=== PATIENT | female | born 1965 | race Hispanic/Latino ===

== ENCOUNTER 2017-04-08 11:52 | Inpatient (IN) | payer SELFPAY ==
[2017-04-08 12:39] LABS: #Basophils 0.1 thou/uL (0.0-0.2); #Eosinphils 0.1 thou/uL (0.0-0.7); #Lymphocytes 1.9 thou/uL (1.20-3.40); #Monocytes 0.3 thou/uL (0.11-0.59); #Neutrophils 3.2 thou/uL (1.40-6.50); %Basophils 1.6 % (0.0-1.0); %Eosinophils 1.7 % (0.0-10.0); %Lymphocytes 34.4 % (21.0-51.0); %Monocytes 4.9 % (0.0-10.0); %Neutrophils 57.4 % (42.0-75.0); Hemoglobin 13.6 g/dL (12.0-16.0); Mean Corpuscular HGB CONC 33.7 g/dL (32.0-36.0); Mean Corpuscular Hemoglobin 29.6 pg (27.0-31.0); Mean Corpuscular Volume 87.9 fl (81.0-99.0); Mean Platelet Volume 11.4 fL (7.4-10.4); Platelet Count 185 thou/uL (130-400); RBC Distribution Width 12.8 % (11.5-14.5); Red Blood Cell (RBC) Count 4.59 mill/uL (4.20-5.40); White Blood Cell (WBC) Count 5.6 thou/uL (4.8-10.8)
[2017-04-08] MEDS ORDERED: Labetalol HCl 100 MG/20 ML VIAL ONE (12:39)
[2017-04-08] MEDS ORDERED: Nitroglycerin 2% Ointment 1 INCH/1 GM Packet ONE (12:39)
[2017-04-08 12:43] LABS: PTT 26.1 SEC (22.9-36.1); Prothrombin Time 12.8 SEC (12.0-14.7)
--- NOTE | 2017-04-08 12:43 | CT ---
CT BRAIN: Date: 04/08/17 PROVIDED CLINICAL HISTORY: Altered mental status. FINDINGS: The ventricular system appears normal in size and morphology. There is no evidence for intracranial h emorrhage or mass effect. The extracranial soft tissues and osseous structures demonstrate an unremar kable CT appearance. IMPRESSION: No evidence for intracranial hemorrhage or mass effect. Findings communicated to Dr. Hogan in the emergency department at 1207 hours on 04/08/17. CODE CR. POS: HONG
--- NOTE | 2017-04-08 12:52 | CT ---
CT ANGIOGRAM BRAIN WITH IV CONTRAST AND 3D MIP RECONSTRUCTIONS AND PERFUSION CT ANGIOGRAM NECK WITH I V CONTRAST AND 3D MIP RECONSTRUCTIONS: Date: 04/08/17 HISTORY: Altered mental status FINDINGS: There is a three vessel origin of the great vessels at the arch. The common carotid, subclavian, inno minate, vertebral, and internal carotid arteries demonstrate no significant stenosis. Mild atheroscle rotic plaque at the origin of the left internal carotid artery. There is no evidence for focal vessel stenosis, branch occlusion, or aneurysm involving the major int racerebral vessels. The perfusion images demonstrate no vascular distribution of elevated mean transit time. IMPRESSION: 1. No significant internal carotid artery stenosis or acute finding related to the great vessels of the neck. 2. Normal CT angiogram of the brain. 3. Normal CT perfusion. Findings communicated to Dr. Hogan in the emergency department at 1220 hours on 04/08/17. CODE CR. POS: HONG
[2017-04-08 12:57] LABS: ALT (SGPT) 15 U/L (8-55); AST (SGOT) 11 U/L (5-34); Acetaminophen Less than 6.0 mcg/mL (10.0-30.0); Albumin 3.6 g/dL (3.5-5.0); Alcohol Less than 10 mg/dL (Less than 10); Alkaline Phosphatase 86 U/L (40-150); Anion Gap 14 mmol/L (10-20); BUN (Urea Nitrogen) 11 mg/dL (7.0-18.7); Bilirubin, Total 0.3 mg/dL (0.2-1.2); CK (CPK) 25 U/L (29-168); Calc. Creatinine Clearance 0 mL/min (70-130); Calcium 8.9 mg/dL (7.8-10.44); Carbon Dioxide 22 mmol/L (22-29); Chloride 99 mmol/L (98-107); Estimated GFR-MDRD Greater than 90; Globulin 2.6 g/dL (2.4-3.5); Potassium 3.9 mmol/L (3.5-5.1); Protein, Total 6.2 g/dL (6.0-8.3); Salicylate Less than 8.0 mg/dL (15.0-30.0); Sodium 131 mmol/L (136-145)
[2017-04-08 12:58] LABS: Glucose 398 mg/dL (70-105)
[2017-04-08 13:00] LABS: CKMB 0.7 ng/mL (0-6.6); Troponin I 0.049 ng/mL (< 0.028)
[2017-04-08 13:52] LABS: Bilirubin Negative (Negative); Blood, Urine Trace (Negative); Clarity CLEAR (Clear); Glucose, Urine (Dipstick) >=1000 mg/dL (Negative); Leukocyte Negative (Negative); Nitrite Negative (Negative); Protein, Urine (Dipstick) 100 mg/dL (Neg-Trace); Urobilinogen 0.2 mg/dL (0.2-1.0)
[2017-04-08 13:55] LABS: Bacteria/HPF 4+ HPF (None Seen); Hyaline Casts/LPF 0-3 HYALINE CAST LPF (0-3 Hyaline); RBC/HPF 0-3 HPF (0-3); Squamous Epithelial 0-3 HPF (0-3)
[2017-04-08 14:01] LABS: Amphetamine Not Detected (NotDetected); Barbiturates Screen Not Detected (NotDetected); Benzodiazepine Screen Not Detected (NotDetected); Cocaine Metabolite Screen Not Detected (NotDetected); Medtox Control Line Valid? VALID (VALID); Medtox Reader # READER 4; Methadone Not Detected (NotDetected); Methamphetamine Not Detected (NotDetected); Opiate Screen Not Detected (NotDetected); Oxycodone Screen Not Detected (NotDetected); Phencyclidine (PCP) Not Detected (NotDetected); THC/Cannabinoid Screen Not Detected (NotDetected); Tricyclic Screen Not Detected (NotDetected)
[2017-04-08] MEDS ORDERED: ISOVUE-370 76%-LOCM 1 ML ONE (14:15)
[2017-04-08 16:41] VITALS: BMI 30.8
[2017-04-08] MEDS ORDERED: Ondansetron ODT 4 MG TAB SL PRN (16:43)
[2017-04-08] MEDS ORDERED: Ondansetron HCl/PF 4 MG/2 ML Vial IVP PRN (16:43)
[2017-04-08] MEDS ORDERED: Acetaminophen 325 MG TAB PO PRN (16:43)
[2017-04-08] MEDS ORDERED: FLU VACC QS2017-18 36 mo. & older 0.5 ML SYRINGE IM ONE (17:30)
[2017-04-08] MEDS ORDERED: Dextrose 5% in Water 1,000 ML IV PRN (18:55)
[2017-04-08] MEDS ORDERED: Dextrose 50% Abboject 50 ML SYRINGE SLOW IVP PRN (18:55)
[2017-04-08] MEDS ORDERED: HumaLOG 300 UNITS/3 ML VIAL SC PRN (18:55)
[2017-04-08] MEDS: Famotidine 20 MG TAB PO SCH (21:11)
[2017-04-08] MEDS: Sodium Chloride 0.9% 1,000 ML IV SCH (21:13)
[2017-04-08 22:19] LABS: Troponin I 0.054 ng/mL (< 0.028)
--- NOTE | 2017-04-08 22:46 | HP ---
DATE OF ADMISSION: 04/08/2017 PRIMARY CARE PHYSICIAN: Margarita in [place], [place]. CHIEF COMPLAINT: Question of altered mental status and weakness. HISTORY OF PRESENT ILLNESS: This is a 51-year-old female, Japanese speaking only, who presen janessa to [facility] Emergency Department after the patient's daughter found the patient lying on a couch, crying. The patient's daughter provides the history and translation and st ates that she had gone to the grocery store and returned to find her mother, lying on the couch somew hat confused and crying. No specific evidence of fall, injury, seizure activity, urinary, or bowel i ncontinence. The patient's daughter became concerned after finding her mother and called EMS ambrose galvan. Patient was evaluated by EMS, at which point the initial blood pressure was noted 225/110 with s ome tachycardia in the low 100s. Patient apparently was initially altered with orientation x0 with i nitial [place] coma scale of 11. Patient states she was sitting on the couch, but does not remember and passing out or blacking out. Patient denied any specific chest pain, but has felt weakness. Marie king admits to longstanding history of diabetes approximately 16 years, poorly controlled. Patient d oes not check her own glucose at home and apparently does not have a glucometer. Patient also is leg ally blind due to advanced diabetes over the last 8 months. Patient denies any specific change to he r chronic medications, which include an antihypertensive medication as well as metformin. Patient de nies any illicit ingestion, alcohol use, and states she normally has difficulty ambulating due to the blindness. Patient underwent general evaluation including CT of the brain as well as CT angiogram o f the head and neck showing negative findings. Patient received IV labetalol and transdermal nitrogl ycerin and was referred to the stroke unit for further evaluation. PAST MEDICAL HISTORY: 1. Diabetes mellitus, type 2 x16 years, poorly controlled. 2. Diabetic retinopathy with legal blindness. 3. Question of peripheral neuropathy. 4. Hypertension. PAST SURGICAL HISTORY: Reviewed and negative. CURRENT MEDICATIONS: Unknown, however, patient does admit to metformin dose unknown. ALLERGIES: No known drug allergies. FAMILY HISTORY: Positive for diabetes and hypertension. SOCIAL HISTORY: Patient lives with her daughter in the [place], [place] area. Unemployed. No current a lcohol, tobacco, or illicit drug use. REVIEW OF SYSTEMS: The following complete review of systems was otherwise negative, except as stated per HPI: Constitutional: Weight loss or gain, ability to conduct usual activities. Skin: Rash, i tching. Eyes: Double vision, pain. ENT/Mouth: Nose bleeding, neck stiffness, pain, tenderness. C ardiovascular: Palpitations, dyspnea on exertion, orthopnea. Respiratory: Shortness of breath, whe ezing, cough, hemoptysis, fever, or night sweats. Gastrointestinal: Poor appetite, abdominal pain, heartburn, nausea, vomiting, constipation, or diarrhea. Genitourinary: Urgency, frequency, dysuria, nocturia. Musculoskeletal: Pain, swelling. Neurologic/Psychiatric: Anxiety, depression. Allergy /Immunologic: Skin rash, bleeding tendency. PHYSICAL EXAMINATION: VITAL SIGNS: On admission blood pressure 219/102, pulse 88, respiratory rate 22, temperature 98.4 de grees Fahrenheit, O2 saturation 100% on room air. GENERAL APPEARANCE: This is a 51-year-old female, alert, responsive in no acute distress. HEENT: Pupils are equal, round, and reactive to light and accommodation. Patient will not track. E xtraocular muscles are intact. Nares patent. OP is clear. Scalp atraumatic. NECK: Supple, no cervical adenopathy, no thyromegaly, no carotid bruits, no JVD appreciated. Cervic al spine with full active and passive range of motion. No meningeal signs appreciated. CHEST: Lungs are clear to auscultation bilaterally. CARDIOVASCULAR: S1, S2 without noted murmur. ABDOMEN: Obese, soft, nontender, nondistended. Bowel sounds are positive in all four quadrants. Th ere is no hepatosplenomegaly, no abdominal bruits, no rebound or guarding appreciated. EXTREMITIES: Warm and dry with fair turgor. No clubbing, cyanosis, or asymmetric edema appreciated. Pulses are palpable distally at the dorsalis pedis, posterior tibial, and popliteal arteries bilate rally. Capillary refill less than 2 seconds. NEUROLOGIC: Legally blind. The rest of the cranial nerves II-XII are grossly intact. PERTINENT LABORATORY AND X-RAY FINDINGS: Sodium 131, potassium 3.9, chloride 99, CO2 of 22, BUN 11, creatinine 0.64, estimated GFR greater than 90, glucose 398, calcium 8.9. LFTs within normal limits. Total CK 25, troponin I at 0.049, albumin 3.6. CBC showed a white blood cell count of 5.6, hemoglo bin 14, hematocrit 40, platelet count of 185 with normal differential. PT 12.8, INR 1.0, PTT 26.1. Urinalysis shows specific gravity of 1.060, pH of 7, positive protein, greater than 1000 glucose, pos itive ketones with 4-6 wbc's per high powered field. Urine drug screen dated 04/08/2017, negative. Plasma alcohol level less than 10. CT of the brain without contrast dated 04/08/2017, showed no acut e intracranial process. CT angiogram of the head and neck dated 04/08/2017, showed no significant fo antonieta stenosis. EKG dated 04/08/2017, by my interpretation shows sinus mechanism with heart rates in t he 80s. Attenuated R waves noted in the precordial leads. Left axis deviation. No acute ST-T wave changes appreciated. ASSESSMENT AND PLAN: 1. Hypertensive urgency with encephalopathy. Patient will be admitted to the stroke unit. Clinical symptoms have resolved currently. We will continue serial blood pressure monitoring. We will provi de clonidine and hydralazine p.r.n. systolic greater than or equal to 170. Initial neuro imaging unr emarkable. 2. Diabetes mellitus, type 2, uncontrolled. We will check A1c level in the a.m. Provide insulin sl iding scale for reflexive coverage. ADA diet. Confirm home oral hypoglycemics. 3. Hyponatremia secondary to hyperglycemia. We will continue intravenous normal saline at 75 mL per hour. Suspect pseudohyponatremia due to hyperglycemia. Repeat sodium level in the a.m. 4. Elevated troponin I. Suspect demand ischemic state secondary to hypertensive urgency. Complete serial troponin I trending q.3 hours x2. No evidence to suggest acute coronary syndrome. 5. Hypertension. See #1 above. We will need to confirm home antihypertensive regimen. Likely louis ent will have additional titration of her blood pressure regimen on an ongoing basis after discharge. Check 2D transthoracic echocardiogram. 6. Prophylaxis. Sequential compression devices while in bed. Pepcid 20 mg p.o. b.i.d. Dietitian shirley salvador in the a.m. 7. Code status is FULL. Surrogate medical decision maker is the patient's daughter.
[2017-04-08] MEDS ORDERED: Docusate 100 MG CAP PO SCH (23:15)
[2017-04-09 01:01] LABS: Troponin I 0.061 ng/mL (< 0.028)
[2017-04-09 05:54] LABS: ALT (SGPT) 15 U/L (8-55); AST (SGOT) 11 U/L (5-34); Albumin 3.5 g/dL (3.5-5.0); Alkaline Phosphatase 75 U/L (40-150); Anion Gap 11 mmol/L (10-20); BUN (Urea Nitrogen) 14 mg/dL (7.0-18.7); Bilirubin, Total 0.3 mg/dL (0.2-1.2); Calc. Creatinine Clearance 137 mL/min (70-130); Calcium 8.8 mg/dL (7.8-10.44); Carbon Dioxide 27 mmol/L (22-29); Chloride 102 mmol/L (98-107); Estimated GFR-MDRD Greater than 90; Globulin 2.5 g/dL (2.4-3.5); Glucose 341 mg/dL (70-105); Potassium 3.9 mmol/L (3.5-5.1); Sodium 136 mmol/L (136-145)
[2017-04-09] MEDS: HumaLOG 300 UNITS/3 ML VIAL SC PRN ×3 (06:13→17:36)
[2017-04-09 06:17] LABS: Hemoglobin A1c 14.1 % (4.0-6.0)
[2017-04-09 06:31] LABS: Band 1 % (5-11); Eosinophils 1 % (0-10); Hemoglobin 12.5 g/dL (12.0-16.0); Lymphocytes 38 % (21-51); MDiff Complete? YES; Mean Corpuscular HGB CONC 33.9 g/dL (32.0-36.0); Mean Corpuscular Hemoglobin 30.2 pg (27.0-31.0); Mean Corpuscular Volume 89.1 fl (81.0-99.0); Mean Platelet Volume 11.8 fL (7.4-10.4); Monocytes 5 % (0-10); Neutrophil 55 % (42-75); PLT Morphology Comment Appears Adequate; Platelet Count 179 thou/uL (130-400); RBC Distribution Width 12.8 % (11.5-14.5); RBC Morphology Normal; Red Blood Cell (RBC) Count 4.13 mill/uL (4.20-5.40); White Blood Cell (WBC) Count 5.4 thou/uL (4.8-10.8)
[2017-04-09] MEDS: Senokot 8.6 MG TAB PO SCH (09:53)
[2017-04-09] MEDS: Famotidine 20 MG TAB PO SCH ×2 (09:53→20:55)
[2017-04-09] MEDS: Docusate 100 MG CAP PO SCH ×2 (09:53→20:55)
[2017-04-09] MEDS: Sodium Chloride 0.9% 1,000 ML IV SCH ×2 (09:59→22:07)
--- NOTE | 2017-04-09 13:24 | PDOC.PN ---
- Subjective Encounter Start Date: 04/09/17 Encounter Start Time: 13:25 Subjective: f/u for HTN encephalopathy and uncontrolled DM. A1C = 14.1. Feels ok over -: all but still weak. No N/V/D. No unilateral weakness. Some LE pain. - Objective Resuscitation Status: Resuscitation Status FULL:Full Resuscitation MAR Reviewed: Yes Vital Signs & Weight: Vital Signs (12 hours) Temp Pulse Pulse Pulse Resp BP BP 04/09/17 11:45 98.3 F 81 16 04/09/17 10:55 82 81 167/79 H 156/73 H 04/09/17 08:30 98.7 F 73 16 04/09/17 07:32 98.7 F 73 16 04/09/17 04:00 97.9 F 68 20 BP Pulse Ox 04/09/17 11:45 156/73 H 99 04/09/17 10:55 04/09/17 08:30 96 04/09/17 07:32 137/62 98 04/09/17 04:00 138/63 97 Weight Weight 179 lb 8 oz I&O: 04/08/17 04/09/17 04/10/17 06:59 06:59 06:59 Intake Total 1165 Balance 1165 Result Diagrams: 04/09/17 04:51 04/09/17 04:51 Additional Labs: Accuchecks 04/09/17 04/09/17 04/08/17 10:55 05:41 20:30 POC Glucose 346 H 290 H 384 H 04/08/17 17:45 POC Glucose 338 H Laboratory Tests 04/08/17 04/08/17 04/09/17 12:20 21:48 00:19 Hemoglobin A1c Troponin I 0.049 H 0.054 H 0.061 H TSH 3rd Generation 04/09/17 04/09/17 04:51 04:51 Hemoglobin A1c 14.1 H Troponin I TSH 3rd Generation 1.6725 Radiology Reviewed by me: Yes (2D echo - pending) EKG Reviewed by me: Yes (Tele - SR) Phys Exam - Physical Examination Constitutional: NAD HEENT: oral pharynx no lesions Neck: no JVD, supple Respiratory: no wheezing, clear to auscultation bilateral Cardiovascular: RRR Gastrointestinal: soft, non-tender, no distention, positive bowel sounds Musculoskeletal: no edema, pulses present Neurological: normal sensation, moves all 4 limbs Skin: normal turgor, cap refill <2 seconds Dx/Plan (1) Hypertensive encephalopathy Code(s): I67.4 - HYPERTENSIVE ENCEPHALOPATHY Status: Acute Comment: Improved , start Lisinopril 10mg daily, titrate BP regimen to clinical response (2) Diabetes mellitus type II, uncontrolled Code(s): E11.65 - TYPE 2 DIABETES MELLITUS WITH HYPERGLYCEMIA Status: Chronic Comment: Uncontrolled, start NPH 15u sc BID, ISS, accuchecks AC/HS (3) Hyponatremia Code(s): E87.1 - HYPO-OSMOLALITY AND HYPONATREMIA Status: Chronic Comment: Likely pseudohyponatremia, serial Na+, anticipate improvement with stabilizing glucose (4) Elevated troponin I level Code(s): R74.8 - ABNORMAL LEVELS OF OTHER SERUM ENZYMES Status: Acute Comment: Suspect demand ischemia in context of uncontrolled HTN, 2D echo pending (5) Diabetic retinopathy associated with type 2 diabetes mellitus Code(s): E11.319 - TYPE 2 DIABETES W UNSP DIABETIC RTNOP W/O MACULAR EDEMA Status: Chronic Qualifiers: Laterality: bilateral Comment: Advanced retinopathy, plan for outpt Ophthalmological referral - Plan plan discussed w/ family, PT/OT, social work msw, out of bed/ambulate, DVT proph w/SCDs Start NPH insulin 15u sc BID -: Start Lisinopril 10mg daily -: DM teaching -: Continue IVF's another 24h then d/c -: AM lab: BMP, Lipid profile * .
[2017-04-09] MEDS ORDERED: NPH, Human Insulin Isophane 300 UNIT/3 ML VIAL SC SCH (14:00)
[2017-04-09] MEDS ORDERED: Lisinopril 10 MG TAB PO SCH (14:00)
[2017-04-09] MEDS: Lisinopril 10 MG TAB PO SCH (15:00)
[2017-04-09] MEDS: NPH, Human Insulin Isophane 300 UNIT/3 ML VIAL SC SCH (20:55)
[2017-04-10] MEDS: HumaLOG 300 UNITS/3 ML VIAL SC PRN ×2 (05:22→11:58)
[2017-04-10 05:53] LABS: Anion Gap 9 mmol/L (10-20); BUN (Urea Nitrogen) 10 mg/dL (7.0-18.7); Calc. Creatinine Clearance 149 mL/min (70-130); Calcium 8.4 mg/dL (7.8-10.44); Carbon Dioxide 25 mmol/L (22-29); Cardiac Risk 7.2 (Less than 4.5); Chloride 107 mmol/L (98-107); Cholesterol 202 mg/dl (< 200 Desired); Estimated GFR-MDRD Greater than 90; Glucose 262 mg/dL (70-105); HDL Cholesterol 28 mg/dL (>60 Neg Risk); LDL Cholesterol, Calculated 124 mg/dL; Potassium 3.9 mmol/L (3.5-5.1); Sodium 137 mmol/L (136-145); Triglycerides 250 mg/dL (Less than 150)
[2017-04-10] MEDS: Senokot 8.6 MG TAB PO SCH (08:31)
[2017-04-10] MEDS: Docusate 100 MG CAP PO SCH (08:32)
[2017-04-10] MEDS: NPH, Human Insulin Isophane 300 UNIT/3 ML VIAL SC SCH (08:32)
[2017-04-10] MEDS: Famotidine 20 MG TAB PO SCH (08:32)
[2017-04-10] MEDS: Lisinopril 10 MG TAB PO SCH (14:31)
[2017-04-10 15:34] VITALS: BP 158/80; TEMP 98.2
--- NOTE | 2017-04-10 15:42 | DIS ---
DATE OF ADMISSION: 04/08/2017 DATE OF DISCHARGE: 04/10/2017 DISCHARGE DIAGNOSES: 1. Hypertensive encephalopathy, resolved. 2. Hypertension, improved. 3. Diabetes mellitus, type 2, uncontrolled. 4. Hyponatremia, secondary to hyperglycemia. 5. Elevated troponin I, secondary to demand ischemia. 6. Advanced diabetic retinopathy, secondary to uncontrolled diabetes mellitus type 2. 7. Hyperlipidemia. CONSULTATIONS: None. PERTINENT LABORATORY AND X-RAY FINDINGS: Basic metabolic profile within normal limits. Hemoglobin A 1c 14.1. Troponin I ranged between 0.049-0.061. TSH 1.48. Total cholesterol 202, triglycerides 250 , HDL 28, LDL 124. CT angiogram of the head and neck dated 04/10/2017 showed no significant internal carotid artery stenosis. Normal angiogram of the brain. CT of the brain without contrast dated showed no acute intracranial process. A 2D transthoracic echocardiogram dated 04/09/2017 charlotte wed ejection fraction of 60%-65%. Mild tricuspid valve regurgitation. HOSPITAL COURSE: Patient was initially admitted to the stroke unit after presenting with questionabl e altered mentation in the context of elevated blood pressure in the 220s/110 range. The patient was diagnosed with hypertensive encephalopathy, treated initially with clonidine and hydralazine. Kusum nt was monitored clinically with overall stabilization of mental status after control of blood pressu re. The patient also with significant history of diabetes mellitus, type 2, confirming uncontrolled status with hemoglobin A1c of 14.1. The patient was initiated on NPH insulin 15 units subcutaneously b.i.d., titrating to 20 units subcutaneously b.i.d., with overall glucose trend in the low 200 range . Patient will need additional titration of her insulin regimen on an ongoing basis after discharge. The patient received diabetic education and instruction from dietitian services and will need [facility] education and reinforcement after discharge. Overall, the patient did remain clinically stable th roughout the hospital course with telemetry monitoring showing a sinus mechanism without evidence of acute arrhythmia or dysrhythmia. Current recommendations are for aggressive glucose control and clos e followup with her primary care provider. The patient was also recommended to seek ophthalmologic c onsultation due to advanced diabetic retinopathy. Overall, the patient clinically stabilized and jarvis dy for discharge on 04/10/2017. DISCHARGE MEDICATIONS: 1. NPH (Humulin N) 20 units subcutaneously b.i.d. 2. Lisinopril 10 mg 1 tab p.o. daily. FOLLOWUP: The patient may follow up with [facility] in [place], [place], within 5-7 days of discharge. CONDITION ON DISCHARGE: Fair. ACTIVITY: Ad jarod. DIET: ADA and heart healthy. SPECIAL INSTRUCTIONS: Recommend ophthalmology followup for advanced diabetic retinopathy. CODE STATUS: FULL. DISPOSITION: Home, 04/10/2017.
--- NOTE | 2017-04-16 17:23 | EKG ---
Test Reason : STROKE Blood Pressure : / mmHG Vent. Rate : 088 BPM Atrial Rate : 088 BPM P-R Int : 140 ms QRS Dur : 092 ms QT Int : 408 ms P-R-T Axes : 032 -56 040 degrees QTc Int : 493 ms Normal sinus rhythm Left anterior fascicular block Abnormal ECG Confirmed by SHIRA LAURENT, MICHAEL Jung ([id number]), editor managing newspaper HELENE PALACIOS ([id number]) on 04/16/2017 5:22:54 PM Referred By: Confirmed By:MICHAEL SILVA MD
== END 2017-04-10 17:33 | disposition home or self-care (01) | DRG 78 ==
LOC: ERS 11:52 → EDBD 11:52 → 2SE 14:33
PROVIDERS: ADMIT Family Medicine; ATTEND Family Medicine
DX: I67.4 Hypertensive encephalopathy (principal); E87.1 Hypo-osmolality and hyponatremia; E11.319 Type 2 diabetes mellitus with unspecified diabetic retinopathy without macular edema; I24.8 Other forms of acute ischemic heart disease; I10 Essential (primary) hypertension; E11.65 Type 2 diabetes mellitus with hyperglycemia; E78.5 Hyperlipidemia, unspecified
CPT/HCPCS: 0042T; 36415; 36416; 70450; 70496; 70498; 80048; 80053; 80061; 80306; 80307; 81003; 81015; 82553; 83036; 84443; 84484; 85007; 85025; 85027; 85610; 85730; 86850; 86870; 86900; 86901; 86922; 90471; 90682; 93005; 93306; 94760; 96374; A4216; A4353; G0008; G8978-GP-CK; G8979-GP-CK; G8980-GP-CK; J1815; Q0162; Q2036

== ENCOUNTER 2017-05-01 19:49 | Observation (INO) | payer SELFPAY ==
[2017-05-01 20:19] LABS: #Basophils 0.1 thou/uL (0.0-0.2); #Eosinphils 0.2 thou/uL (0.0-0.7); #Lymphocytes 2.8 thou/uL (1.20-3.40); #Monocytes 0.4 thou/uL (0.11-0.59); #Neutrophils 5.1 thou/uL (1.40-6.50); %Basophils 1.2 % (0.0-1.0); %Lymphocytes 32.5 % (21.0-51.0); %Monocytes 4.9 % (0.0-10.0); %Neutrophils 59.3 % (42.0-75.0); Hemoglobin 14.3 g/dL (12.0-16.0); Mean Corpuscular HGB CONC 34.5 g/dL (32.0-36.0); Mean Corpuscular Hemoglobin 30.8 pg (27.0-31.0); Mean Corpuscular Volume 89.1 fl (81.0-99.0); Mean Platelet Volume 11.6 fL (7.4-10.4); Platelet Count 211 thou/uL (130-400); RBC Distribution Width 13.4 % (11.5-14.5); Red Blood Cell (RBC) Count 4.66 mill/uL (4.20-5.40); White Blood Cell (WBC) Count 8.6 thou/uL (4.8-10.8)
[2017-05-01 20:42] LABS: ALT (SGPT) 13 U/L (8-55); AST (SGOT) 15 U/L (5-34); Albumin 4.1 g/dL (3.5-5.0); Alkaline Phosphatase 119 U/L (40-150); Anion Gap 16 mmol/L (10-20); BUN (Urea Nitrogen) 17 mg/dL (7.0-18.7); Bilirubin, Total 0.2 mg/dL (0.2-1.2); Calc. Creatinine Clearance 0 mL/min (70-130); Calcium 9.7 mg/dL (7.8-10.44); Carbon Dioxide 21 mmol/L (22-29); Chloride 100 mmol/L (98-107); Estimated GFR-MDRD 70; Globulin 3.7 g/dL (2.4-3.5); Glucose 353 mg/dL (70-105); Potassium 4.2 mmol/L (3.5-5.1); Protein, Total 7.8 g/dL (6.0-8.3); Sodium 133 mmol/L (136-145)
[2017-05-01 20:45] LABS: CKMB 0.9 ng/mL (0-6.6); Troponin I 0.079 ng/mL (< 0.028)
--- NOTE | 2017-05-01 21:21 | RAD ---
FRONTAL VIEW CHEST: Indication: Dyspnea. FINDINGS: Lungs are clear. No effusion or pneumothorax. Cardiac silhouette is accentuated with portable techniq ue. Extrinsic artifacts limit detail. IMPRESSION: No focal consolidation. POS: HONG
[2017-05-01] MEDS ORDERED: Dextrose 5% in Water 1,000 ML IV PRN (23:41)
[2017-05-01] MEDS ORDERED: Acetaminophen 325 MG TAB PO PRN (23:41)
[2017-05-01] MEDS ORDERED: HYDROcodone/Acetaminophen 5/325 mg Tablet PO PRN (23:41)
[2017-05-01] MEDS ORDERED: HYDROcodone/Acetaminophen 7.5/325 mg Tablet PO PRN (23:41)
[2017-05-01] MEDS ORDERED: Dextrose 50% Abboject 50 ML SYRINGE SLOW IVP PRN (23:41)
[2017-05-01] MEDS ORDERED: Insulin Regular 300 UNITS/3 ML VIAL ONE (23:47)
[2017-05-02 00:30] LABS: Troponin I 0.084 ng/mL (< 0.028)
--- NOTE | 2017-05-02 00:38 | HP ---
CHIEF COMPLAINT: Shortness of breath. HISTORY OF PRESENT ILLNESS: The patient is a 51-year-old female, who presents with increasing shortn ess of breath since yesterday. The patient of note was in the hospital recently for her blood sugar and also for cardiac workup. Patient apparently was started on diuretics; however, did not fill the prescription, has not been compliant with her medications. The patient also complained of PND. She denied any chest pain. Please note her daughter was present and history was obtained through transla tion to her. PAST MEDICAL HISTORY: The patient significant for type 2 diabetes and hypertension. PAST SURGICAL HISTORY: x2. SOCIAL HISTORY: Negative tobacco or alcohol use. REVIEW OF SYSTEMS: See HPI. Rest of 14-point review of system is negative. FAMILY HISTORY: Reviewed and noncontributory. MEDICATIONS: The patient has only been taking metformin. LABORATORY DATA: Yesterday, CBC, white count was 8.6, H and H 14 and 41 with a platelet of 211. Sod ium is 133, potassium 4.2, chloride 100, bicarbonate 21, BUN 17, creatinine 0.8. Patient's chest x-r ay showed no consolidation. PHYSICAL EXAMINATION: VITAL SIGNS: Blood pressure 144/55, pulse 74, respirations 16, T-max was 92, patient satting 97% on room air. GENERAL: Patient is awake, alert, and oriented x3, in no acute distress. HEENT: Pupils are round, reactive accommodations. Extraocular muscles intact. TMs are clear. No e rythema in throat. NECK: No JVD, no lymphadenopathy. CARDIOVASCULAR: Regular rhythm. LUNGS: With some crackles at the bases. ABDOMEN: Positive bowel sounds, soft, nontender, nondistended. EXTREMITIES: No clubbing, cyanosis, or edema. ASSESSMENT AND PLAN: 1. Uncontrolled hypertension. Continue on Lasix. We will go ahead and add beta-anabell to her milli men. 2. Type 2 diabetes. Continue on sliding scale. 3. Code status: The patient is FULL CODE.
[2017-05-02 02:54] VITALS: BMI 35.4
[2017-05-02 03:11] LABS: #Basophils 0.1 thou/uL (0.0-0.2); #Eosinphils 0.1 thou/uL (0.0-0.7); #Lymphocytes 2.2 thou/uL (1.20-3.40); #Monocytes 0.4 thou/uL (0.11-0.59); #Neutrophils 3.9 thou/uL (1.40-6.50); %Eosinophils 2.1 % (0.0-10.0); %Lymphocytes 32.5 % (21.0-51.0); %Monocytes 5.9 % (0.0-10.0); %Neutrophils 58.6 % (42.0-75.0); Hemoglobin 11.8 g/dL (12.0-16.0); Mean Corpuscular HGB CONC 33.4 g/dL (32.0-36.0); Mean Corpuscular Volume 89.8 fl (81.0-99.0); Mean Platelet Volume 11.3 fL (7.4-10.4); Platelet Count 160 thou/uL (130-400); RBC Distribution Width 13.3 % (11.5-14.5); Red Blood Cell (RBC) Count 3.93 mill/uL (4.20-5.40); White Blood Cell (WBC) Count 6.7 thou/uL (4.8-10.8)
[2017-05-02 03:31] LABS: Anion Gap 9 mmol/L (10-20); BUN (Urea Nitrogen) 16 mg/dL (7.0-18.7); Calc. Creatinine Clearance 153 mL/min (70-130); Calcium 8.5 mg/dL (7.8-10.44); Carbon Dioxide 25 mmol/L (22-29); Chloride 106 mmol/L (98-107); Estimated GFR-MDRD Greater than 90; Glucose 281 mg/dL (70-105); Potassium 3.8 mmol/L (3.5-5.1); Sodium 136 mmol/L (136-145)
[2017-05-02 03:35] LABS: Troponin I 0.086 ng/mL (< 0.028)
[2017-05-02] MEDS: HumaLOG 300 UNITS/3 ML VIAL SC PRN ×3 (06:15→17:51)
[2017-05-02] MEDS: Enoxaparin Sodium 30 MG/0.3 ML SYRINGE SC SCH (09:14)
[2017-05-02] MEDS: Furosemide 40 MG TAB PO SCH (09:14)
--- NOTE | 2017-05-02 12:52 | PDOC.PN ---
- Subjective Encounter Start Date: 05/02/17 Encounter Start Time: 12:50 Subjective: sob improved - Objective Resuscitation Status: Resuscitation Status FULL:Full Resuscitation MAR Reviewed: Yes Vital Signs & Weight: Vital Signs (12 hours) Temp Pulse Resp BP BP Pulse Ox 05/02/17 11:12 97.5 F L 67 16 151/69 H 97 05/02/17 08:00 97.7 F 71 18 05/02/17 07:20 97.7 F 71 18 146/70 H 95 05/02/17 02:54 98.2 F 72 20 146/67 H 95 05/02/17 02:35 98.2 F 74 22 H 05/02/17 01:09 98.2 F 74 22 H 183/80 H 97 Weight Weight 187 lb 9.6 oz I&O: 05/01/17 05/02/17 05/03/17 06:59 06:59 06:59 Intake Total 110 Output Total 0 Balance 110 Result Diagrams: 05/02/17 03:01 05/02/17 03:01 Additional Labs: Accuchecks 05/02/17 05/02/17 05/02/17 10:50 06:14 02:59 POC Glucose 284 H 230 H 251 H Phys Exam - Physical Examination Constitutional: NAD Neck: no JVD Respiratory: clear to auscultation bilateral Cardiovascular: RRR, no significant murmur Gastrointestinal: soft, positive bowel sounds Musculoskeletal: no edema Dx/Plan (1) Dyspnea Code(s): R06.00 - DYSPNEA, UNSPECIFIED Status: Acute Qualifiers: Dyspnea type: shortness of breath Qualified Code(s): R06.02 - Shortness of breath; R06.00 - Dyspnea, unspecified; R06.01 - Orthopnea (2) DM type 2 (diabetes mellitus, type 2) Status: Chronic Qualifiers: Diabetes mellitus complication status: without complication Diabetes mellitus intermediate designer insulin use: without intermediate designer use Qualified Code(s): E11.9 - Type 2 diabetes mellitus without complications (3) Hypertension, uncontrolled Code(s): I10 - ESSENTIAL (PRIMARY) HYPERTENSION Status: Chronic - Plan cont acccu/ss/ reinstitute NPH -: cont lisinopril, metoprolol, lasixx have been added -: trponins chronically elevated * .
[2017-05-02] MEDS ORDERED: Lisinopril 10 MG TAB PO SCH (14:00)
[2017-05-02] MEDS: Insulin NPH/Reg Insulin Hm 300 UNITS/3 ML VIAL SC SCH (21:23)
[2017-05-03] MEDS: HumaLOG 300 UNITS/3 ML VIAL SC PRN (06:02)
[2017-05-03] MEDS: Enoxaparin Sodium 30 MG/0.3 ML SYRINGE SC SCH (08:15)
[2017-05-03] MEDS: Insulin NPH/Reg Insulin Hm 300 UNITS/3 ML VIAL SC SCH (08:16)
[2017-05-03] MEDS: Furosemide 40 MG TAB PO SCH (08:16)
--- NOTE | 2017-05-03 08:18 | DIS ---
DATE OF ADMISSION: 05/01/2017 DATE OF DISCHARGE: 05/03/2017 DISPOSITION: Discharged home. PRIMARY CARE PROVIDER: Rodrigo Moya. FINAL DIAGNOSES: 1. Diabetes mellitus type 2, uncontrolled. 2. Hypertensive urgency. 3. Chronic obstructive pulmonary disease. 4. Shortness of breath resolved. DISCHARGE MEDICATIONS: Metoprolol 25 mg a day, lisinopril 10 mg a day, Lasix 40 mg a day, Novolin 70 /30 of 20 units subcu twice a day. CODE STATUS: FULL. PENDING AT THE TIME OF DISCHARGE: Nothing. DISCHARGE DIET: Diabetic diet. CONSULTATIONS: None. PROCEDURES: None. HOSPITAL COURSE: Patient was admitted to [facility] through the Emergency Department for shortness of breath. Patient had been given multiple medicines not filled any. She was admitted with uncontrolled hypertension. PERTINENT LABORATORY DATA: CBC was normal. Comp metabolic profile revealed a blood sugar of 353, so dium 137 which came up to 136 on repeat. Her troponins, 0.079, 0.084, 0.086. I looked back at her l ast admission, similar numbers. She had no chest pain. The patient currently feels well. Her blood pressure is well controlled and she is being discharged. We have explained at length to this patien t and her family that she needs to take the blood pressure medicines. She is being discharged to [facility] with Rodrigo Moya in 7 days.
[2017-05-03 08:24] VITALS: BP 126/60; TEMP 98.1
--- NOTE | 2017-05-07 17:05 | EKG ---
Test Reason : SOB Blood Pressure : / mmHG Vent. Rate : 074 BPM Atrial Rate : 074 BPM P-R Int : 134 ms QRS Dur : 086 ms QT Int : 400 ms P-R-T Axes : 022 -35 016 degrees QTc Int : 444 ms Normal sinus rhythm Left axis deviation Abnormal ECG Confirmed by CIERRA HAYWARD D.O. ([id number]), material expeditor CLARA PRINCE ([id number]) on 05/07/2017 5:04:29 PM Referred By: DANNA Confirmed By:CIERRA HAYWARD D.O.
== END 2017-05-03 10:30 | disposition home or self-care (01) ==
LOC: ERS 19:49 → ERHOLD 22:25 → 2SW 05-02 01:05
PROVIDERS: ADMIT Hospitalist; ATTEND Hospitalist
DX: E11.65 Type 2 diabetes mellitus with hyperglycemia (principal); I16.0 Hypertensive urgency; I10 Essential (primary) hypertension; R06.02 Shortness of breath; J44.9 Chronic obstructive pulmonary disease, unspecified; E66.9 Obesity, unspecified; Z68.34 Body mass index [BMI] 34.0-34.9, adult; Z79.84 Long term (current) use of oral hypoglycemic drugs; Z98.891 History of uterine scar from previous surgery
CPT/HCPCS: 36415; 36416; 71045; 80048; 80053; 82553; 83880; 84484; 85025; 93005; 96361; 96372; 96374; G0378; J1650; J1815

== ENCOUNTER 2017-08-17 17:57 | Emergency (ER) | payer SELFPAY ==
[2017-08-17] MEDS ORDERED: Lidocaine 1% PF 5 ML VIAL ONE (19:11)
== END 2017-08-17 19:34 | disposition home or self-care (01) ==
LOC: ERS 17:57
DX: L72.8 Other follicular cysts of the skin and subcutaneous tissue (principal); E11.9 Type 2 diabetes mellitus without complications; I10 Essential (primary) hypertension; Z79.84 Long term (current) use of oral hypoglycemic drugs; Z79.899 Other long term (current) drug therapy
CPT/HCPCS: 10060; J2001

== ENCOUNTER 2019-08-26 14:35 | Emergency (ER) | payer OTHER, SELFPAY ==
[2019-08-27 15:05] LABS: SARS-CoV-2 MS2 Positive; SARS-CoV-2 N Gene Positive; SARS-CoV-2 S Gene Positive; SARS-CoV-2 orf1ab Positive
== END 2019-08-26 16:21 | disposition home or self-care (01) ==
LOC: ERS 14:35
DX: U07.1 COVID-19 (principal); Z76.0 Encounter for issue of repeat prescription; R50.9 Fever, unspecified; I10 Essential (primary) hypertension; E11.9 Type 2 diabetes mellitus without complications; F32.9 Major depressive disorder, single episode, unspecified
CPT/HCPCS: 87635; 99283; U0003

== ENCOUNTER 2019-09-01 09:12 | Observation (INO) | payer OTHER, SELFPAY ==
[2019-09-01] MEDS ORDERED: Iopamidol-370 76% 500 ML 1 ML ONE (09:36)
[2019-09-01] MEDS ORDERED: Ketorolac Tromethamine 30 MG/ML VIAL ONE (09:51)
[2019-09-01] MEDS ORDERED: Albuterol 200 PUFF (6.7GM INHALER) ONE (09:52)
[2019-09-01 10:48] LABS: Hemoglobin 12.8 g/dL (12.0-16.0); Mean Corpuscular HGB CONC 33.8 g/dL (32.0-36.0); Mean Corpuscular Hemoglobin 30.3 pg (27.0-31.0); Mean Corpuscular Volume 89.7 fL (78.0-98.0); RBC Distribution Width 12.5 % (11.5-14.5); White Blood Cell (WBC) Count 7.6 thou/uL (4.8-10.8)
[2019-09-01 11:06] LABS: ALT (SGPT) 14 U/L (8-55); AST (SGOT) 13 U/L (5-34); Albumin 3.4 g/dL (3.5-5.0); Alkaline Phosphatase 208 U/L (40-110); Anion Gap 13 mmol/L (10-20); BUN (Urea Nitrogen) 9 mg/dL (9.8-20.1); Bilirubin, Total 0.3 mg/dL (0.2-1.2); Calc. Creatinine Clearance 0 mL/min (70-130); Calcium 8.9 mg/dL (7.8-10.44); Carbon Dioxide 29 mmol/L (22-29); Chloride 97 mmol/L (98-107); Estimated GFR-MDRD 82; Globulin 3.3 g/dL (2.4-3.5); Glucose 394 mg/dL (70-105); Potassium 3.9 mmol/L (3.5-5.1); Protein, Total 6.7 g/dL (6.0-8.3); Sodium 135 mmol/L (136-145)
[2019-09-01 11:08] LABS: #Lymphocytes 1.1 thou/uL (1.20-3.40); #Monocytes 0.4 thou/uL (0.11-0.59); #Neutrophils 6.1 thou/uL (1.40-6.50); %Basophils 0.5 % (0.0-1.0); %Eosinophils 0.3 % (0.0-10.0); %Lymphocytes 13.9 % (21.0-51.0); %Monocytes 5.5 % (0.0-10.0); %Neutrophils 79.7 % (42.0-75.0); Mean Platelet Volume 12.6 fL (7.4-10.4); Platelet Count 151 thou/uL (130-400); Platelet Morphology Comment Appears Adequate
[2019-09-01 11:25] LABS: CKMB 0.5 ng/mL (0-6.6)
--- NOTE | 2019-09-01 11:50 | CT ---
CT PULMONARY ANGIOGRAM WITH IV CONTRAST AND 3D POSTPROCESSING: Date: 09/01/2019 HISTORY: COVID-positive. Shortness of breath. Fever. FINDINGS: There is good contrast opacification of the pulmonary arterial vasculature without filling defects to suggest pulmonary embolism. There are patchy ground-glass opacities in the lung slaughter bilaterally. There are bronchiectatic changes in the peripheral aspect of the right lower lobe. No pleural or rashel cardial effusions are seen. No lymphadenopathy is seen. There is a calcified granuloma in the right u pper lobe. There are degenerative changes in the spine. IMPRESSION: 1. No CT evidence of pulmonary embolism. 2. Findings are consistent with COVID-19 pneumonia. POS: MZA
[2019-09-01] MEDS ORDERED: Nitroglycerin 2% Ointment 1 INCH/1 GM Packet ONE (12:06)
[2019-09-01] MEDS ORDERED: Dexamethasone 4 MG TAB ONE (12:06)
[2019-09-01] MEDS ORDERED: Aspirin Chewable 81 MG TAB ONE (12:06)
[2019-09-01] MEDS ORDERED: Ondansetron PF 4 MG/2 ML Vial IVP PRN (12:38)
[2019-09-01] MEDS ORDERED: Dextrose 5% in Water 1,000 ML IV PRN ×2 (12:39→12:40)
[2019-09-01] MEDS ORDERED: Dextrose 50% Abboject 50 ML SYRINGE SLOW IVP PRN ×2 (12:39→12:40)
--- NOTE | 2019-09-01 13:36 | HP ---
CHIEF COMPLAINT: Shortness of breath. HISTORY OF PRESENT ILLNESS: The patient is a 53-year-old female with past medical history of hypertension and diabetes mellitus, who presented to the hospital with complaints of shortness of breath and fever for the past week. She was diagnosed with Coronavirus earlier in the week. She stated that her daughter was also diagnosed with the virus. Her symptoms, which consist of fever, cough, fatigue, and chest pain with coughing have been worsening over the past week. The patient presented to the ER, where her initial workup was unremarkable apart from slightly elevated troponin of 0.1. The patient was found to be saturating well on room air. We were asked to evaluate this patient for further management. CT scan of the chest with contrast did not reveal any pulmonary embolism, but was positive for Coronavirus pneumonia. REVIEW OF SYSTEMS: Negative except as noted in HPI. PAST MEDICAL HISTORY: As noted above. PAST SURGICAL HISTORY: Unremarkable. PHYSICAL EXAMINATION: GENERAL: The patient is alert and oriented x3. HEENT: Head is normocephalic and atraumatic. Extraocular muscles are intact. NECK: Supple. CHEST: Clear to auscultation bilaterally apart from crackles at the bases. CARDIOVASCULAR: Revealed normal S1 and S2. No murmurs, rubs, or gallops. ABDOMEN: Soft, nontender, and nondistended. NEUROLOGIC: Unremarkable. ASSESSMENT: 1. COVID-19 pneumonia. 2. Chest pain, that is atypical. 3. Hypertension. 4. Diabetes mellitus. 5. Elevated troponins. PLAN: 1. The patient will be placed in observation. Supplemental oxygen as needed. 2. Trend troponin levels. 3. Start insulin sliding scale and check A1c level. 4. Tylenol as needed for fever. We will avoid corticosteroids at this time as the patient is not hypoxic. Job ID: [id number]
[2019-09-01 14:04] LABS: Troponin I 0.119 ng/mL (< 0.028)
[2019-09-01 16:22] VITALS: BMI 33.5
[2019-09-01] MEDS: Lisinopril 10 MG TAB PO SCH (16:30)
[2019-09-01 17:42] LABS: Troponin I 0.124 ng/mL (< 0.028)
[2019-09-01] MEDS: metFORMIN 500 MG TAB PO SCH (17:57)
[2019-09-01] MEDS: Insulin Regular 300 UNITS/3 ML VIAL SC PRN ×2 (18:02→21:35)
[2019-09-02 04:44] LABS: #Lymphocytes 0.7 thou/uL (1.20-3.40); #Monocytes 0.2 thou/uL (0.11-0.59); #Neutrophils 3.9 thou/uL (1.40-6.50); %Basophils 0.7 % (0.0-1.0); %Eosinophils 0.2 % (0.0-10.0); %Lymphocytes 14.5 % (21.0-51.0); %Monocytes 4.4 % (0.0-10.0); %Neutrophils 80.3 % (42.0-75.0); Hemoglobin 11.9 g/dL (12.0-16.0); Mean Corpuscular HGB CONC 33.8 g/dL (32.0-36.0); Mean Corpuscular Hemoglobin 30.5 pg (27.0-31.0); Mean Corpuscular Volume 90.1 fL (78.0-98.0); Mean Platelet Volume 12.1 fL (7.4-10.4); Platelet Count 161 thou/uL (130-400); RBC Distribution Width 12.6 % (11.5-14.5); Red Blood Cell (RBC) Count 3.89 mill/uL (4.20-5.40); White Blood Cell (WBC) Count 4.9 thou/uL (4.8-10.8)
[2019-09-02 04:52] LABS: Hemoglobin A1c Greater than 14.0 % (4.0-6.0)
[2019-09-02 05:06] LABS: Anion Gap 13 mmol/L (10-20); BUN (Urea Nitrogen) 18 mg/dL (9.8-20.1); Calc. Creatinine Clearance 116 mL/min (70-130); Calcium 8.6 mg/dL (7.8-10.44); Carbon Dioxide 26 mmol/L (22-29); Chloride 101 mmol/L (98-107); Estimated GFR-MDRD 88; Glucose 409 mg/dL (70-105); Sodium 136 mmol/L (136-145)
[2019-09-02] MEDS: Insulin Regular 300 UNITS/3 ML VIAL SC PRN ×3 (05:28→16:28)
[2019-09-02] MEDS: Enoxaparin Sodium 40 MG/0.4 ML SYRINGE SC SCH (09:15)
[2019-09-02] MEDS: Furosemide 40 MG TAB PO SCH (09:15)
[2019-09-02] MEDS: metFORMIN 500 MG TAB PO SCH ×2 (09:15→16:25)
[2019-09-02] MEDS ORDERED: Insulin Glargine 20 UNITS in Pre-Filled Syringe 1 EACH SC SCH (11:00)
[2019-09-02] MEDS: Sodium Chloride 0.9% 1,000 ML IV SCH ×2 (12:49→21:38)
[2019-09-02] MEDS: Lisinopril 10 MG TAB PO SCH (16:00)
[2019-09-02] MEDS: Benzonatate 100 MG CAP PO PRN (18:02)
[2019-09-02] MEDS ORDERED: Amlodipine 10 MG TAB PO SCH (18:30)
--- NOTE | 2019-09-02 18:30 | PDOC.HOSPP ---
- Subjective Encounter Date: 09/02/19 Subjective: The patient still complaining of chest pain with coughing. Her sugar levels were elevated. She does not recall what insulin she takes for DM. - Objective Vital Signs & Weight: Vital Signs (12 hours) Temp Pulse Resp BP BP BP Pulse Ox 09/02/19 16:40 98.5 F 89 18 183/86 H 09/02/19 16:00 98.5 F 89 18 182/84 H 09/02/19 12:00 98.7 F 72 18 132/65 09/02/19 08:00 97.9 F 79 18 173/79 H 97 Weight Weight 173 lb 4.8 oz I&O: 09/01/19 09/02/19 09/03/19 06:59 06:59 06:59 Intake Total 1200 1976 Output Total 600 Balance 600 1976 Result Diagrams: 09/02/19 04:18 09/02/19 04:18 Additional Labs: Accuchecks 09/02/19 09/01/19 09/01/19 16:31 20:14 18:03 POC Glucose 275 H 485 H 445 H Hospitalist ROS - Medication Medications: Active Medications Generic Name Dose Route Start Last Admin Trade Name Freq PRN Reason Stop Dose Admin Benzonatate 100 mg 09/01/19 12:33 09/02/19 18:02 Tessalon PO 100 mg TID PRN Administration Cough Enoxaparin Sodium 40 mg 09/02/19 09:00 09/02/19 09:15 Lovenox SC 40 mg 0900 ONELIA Administration Furosemide 40 mg 09/02/19 07:30 09/02/19 09:15 Lasix PO 40 mg DAILY-AC ONELIA Administration Sodium Chloride 1,000 mls @ 150 mls/hr 09/02/19 11:30 09/02/19 12:49 Normal Saline 0.9% IV 1,000 mls .[id number] ONELIA Administration Insulin Human Regular 0 units 09/01/19 12:39 09/02/19 16:28 Humulin R SC 6 unit .MODERATE SLIDING SC PRN Administration Moderate Correctional Scale Lisinopril 10 mg 09/01/19 14:00 09/02/19 16:00 Zestril PO 10 mg 1400 ONELIA Administration Metformin HCl 1,000 mg 09/01/19 17:00 09/02/19 16:25 Glucophage PO 1,000 mg BID-WM ONELIA Administration Metoprolol Succinate 25 mg 09/02/19 09:00 09/02/19 09:15 Toprol Xl PO 25 mg DAILY ONELIA Administration - Exam General Appearance: awake alert ENT: normocephalic atraumatic Neck: supple Heart: RRR Respiratory: normal chest expansion, no tachypnea Gastrointestinal: soft Neurological: cranial nerve grossly intact, no focal deficits Hosp A/P (1) COVID-19 Code(s): U07.1 - COVID-19 Status: Acute (2) HTN (hypertension) Code(s): I10 - ESSENTIAL (PRIMARY) HYPERTENSION Status: Acute (3) Diabetes mellitus type II, uncontrolled Code(s): E11.65 - TYPE 2 DIABETES MELLITUS WITH HYPERGLYCEMIA Status: Chronic (4) Chest pain Code(s): R07.9 - CHEST PAIN, UNSPECIFIED Status: Acute - Plan COVID-19 pneumonia. Patient is not requiring oxygen. Continue conservative management. Her chest pain is related to coughing and has atypical features, however, due to her uncontrolled diabetes and hypertension and minimally elevated troponins, I will go ahead and pursue a stress test tomorrow. Hemoglobin A1c greater than 14. Start Lantus 12 units subcu daily and continue sliding scale. Add amlodipine 10 mg orally daily to her antihypertensive regimen.
[2019-09-02] MEDS ORDERED: Insulin Regular 300 UNITS/3 ML VIAL SC PRN (21:22)
[2019-09-02] MEDS: Acetaminophen 325 MG TAB PO PRN (21:38)
[2019-09-03] MEDS: Benzonatate 100 MG CAP PO PRN (00:12)
[2019-09-03] MEDS: Sodium Chloride 0.9% 1,000 ML IV SCH ×3 (02:52→12:00)
[2019-09-03] MEDS: Acetaminophen 325 MG TAB PO PRN (04:11)
--- NOTE | 2019-09-03 07:45 | PDOC.HOSPP ---
- Subjective Encounter Date: 09/03/19 Encounter Time: 13:50 Subjective: (Via boiler/chiller operator phone) Patient denies further chest pain. States her pain was only with coughing after got Covid-19. SOB improved this AM. Feeling much better. Off O2. - Objective Vital Signs & Weight: Vital Signs (12 hours) Temp Pulse Resp BP BP Pulse Ox 09/03/19 04:09 98.3 F 66 20 145/63 H 95 09/03/19 00:35 98.3 F 65 18 126/59 L 92 L Weight Weight 174 lb I&O: 09/02/19 09/03/19 09/04/19 06:59 06:59 06:59 Intake Total 1200 2817 Output Total 600 Balance 600 2817 Result Diagrams: 09/02/19 04:18 09/02/19 04:18 Additional Labs: Accuchecks 09/03/19 09/02/19 09/02/19 05:55 19:36 16:31 POC Glucose 147 H 211 H 275 H 09/02/19 12:48 POC Glucose 384 H Hospitalist ROS - Review of Systems Constitutional: denies: fever, chills Respiratory: reports: cough. denies: shortness of breath Cardiovascular: denies: chest pain, palpitations Gastrointestinal: denies: nausea, vomiting, abdominal pain - Medication Medications: Active Medications Generic Name Dose Route Start Last Admin Trade Name Freq PRN Reason Stop Dose Admin Acetaminophen 650 mg 09/01/19 12:38 09/03/19 04:11 Tylenol PO 650 mg Q4H PRN Administration Headache/Fever/Mild Pain (1-3) Benzonatate 100 mg 09/01/19 12:33 09/03/19 00:12 Tessalon PO 100 mg TID PRN Administration Cough Enoxaparin Sodium 40 mg 09/02/19 09:00 09/02/19 09:15 Lovenox SC 40 mg 0900 ONELIA Administration Furosemide 40 mg 09/02/19 07:30 09/02/19 09:15 Lasix PO 40 mg DAILY-AC ONELIA Administration Sodium Chloride 1,000 mls @ 70 mls/hr 09/03/19 02:00 09/03/19 02:52 Normal Saline 0.9% IV Not Given .[id number] [facility] Insulin Human Regular 0 units 09/01/19 12:39 09/02/19 16:28 Humulin R SC 6 unit .MODERATE SLIDING SC PRN Administration Moderate Correctional Scale Insulin Human Regular 0 units 09/02/19 21:22 09/02/19 21:38 Humulin R SC 2 unit .BEDTIME SLIDING SC PRN Administration Bedtime Correctional Scale Lisinopril 10 mg 09/01/19 14:00 09/02/19 16:00 Zestril PO 10 mg 1400 ONELIA Administration Metformin HCl 1,000 mg 09/01/19 17:00 09/02/19 16:25 Glucophage PO 1,000 mg BID-WM ONELIA Administration Metoprolol Succinate 25 mg 09/02/19 09:00 09/02/19 09:15 Toprol Xl PO 25 mg DAILY ONELIA Administration - Exam General Appearance: NAD, awake alert ENT: moist mucosa Heart: RRR, no murmur, no gallops, no rubs Respiratory: CTAB, no wheezes, no rales, no ronchi Gastrointestinal: soft, non-tender, non-distended, normal bowel sounds Psychiatric: normal affect, normal behavior, A&O x 3 Hosp A/P (1) Pneumonia due to COVID-19 virus Code(s): U07.1 - COVID-19; J12.89 - OTHER VIRAL PNEUMONIA Status: Acute (2) Chest pain Code(s): R07.9 - CHEST PAIN, UNSPECIFIED Status: Resolved (3) Elevated troponin I level Code(s): R74.8 - ABNORMAL LEVELS OF OTHER SERUM ENZYMES Status: Acute (4) HTN (hypertension) Code(s): I10 - ESSENTIAL (PRIMARY) HYPERTENSION Status: Chronic (5) DM type 2 (diabetes mellitus, type 2) Status: Chronic Qualifiers: Diabetes mellitus terminal press operator insulin use: without shelter use Diabetes mellitus complication status: without complication Qualified Code(s): E11.9 - Type 2 diabetes mellitus without complications - Plan COVID-19 pneumonia. Patient is not requiring oxygen. Continue conservative management. Her chest pain is related to coughing and has atypical features. Does have risk factors for CAD and has previously had palpitations though none now, so would benefit from a cardiac workup in the future once her Covid-19 infection has cleared. No current evidence of ACS. Hemoglobin A1c greater than 14. Started Lantus 20 units subcu daily and continue sliding scale. Blood sugar improved today. Added amlodipine 10 mg orally daily to her antihypertensive regimen with improved BP this AM. Will d/c home with meds. She is to establish with a PCP in town and follow up with cardiology outpatient.
[2019-09-03] MEDS: metFORMIN 500 MG TAB PO SCH (08:10)
[2019-09-03] MEDS: Enoxaparin Sodium 40 MG/0.4 ML SYRINGE SC SCH (08:10)
[2019-09-03] MEDS: Furosemide 40 MG TAB PO SCH (08:10)
[2019-09-03] MEDS ORDERED: Insulin Glargine 20 UNITS in Pre-Filled Syringe 1 EACH SC SCH (09:00)
[2019-09-03] MEDS ORDERED: Amlodipine 10 MG TAB PO SCH (09:00)
[2019-09-03 13:21] VITALS: TEMP 98.1
[2019-09-03] MEDS: Lisinopril 10 MG TAB PO SCH (15:32)
[2019-09-03 15:47] VITALS: BP 161/72
--- NOTE | 2019-09-03 23:17 | DIS ---
DATE OF ADMISSION: 09/01/2019 DATE OF DISCHARGE: 09/03/2019 PRIMARY CARE PHYSICIAN: [facility] REASON FOR ADMISSION: COVID-19 pneumonia with chest pain. DISCHARGE DIAGNOSES: 1. COVID-19 pneumonia. 2. Chest pain, resolved, atypical. 3. Indeterminate troponins, stable. 4. Hypertension. 5. Diabetes mellitus, type 2, uncontrolled. PROCEDURE: CT scan of the chest with and without contrast showing no evidence for pulmonary embolism. This finding is consistent with COVID-19 pneumonia. CONSULTATION: None. SUMMARY OF HOSPITAL COURSE: This is a 53-year-old female, with a history of hypertension and diabetes, used to be treated in [place] and was going to establish with the [facility], but has not actually been gotten in yet and so has not had her medicines refilled and she has been out of medicines for some time. Was never on any insulin, but was on metformin, which she has not been taking after running out. Patient presented with shortness of breath and fever for a week. She was diagnosed with COVID-19 as an outpatient. Her daughter was also having symptoms and was diagnosed as well. Patient had some chest pain associated with her cough and some shortness of breath, so she was seen in the emergency room. There, she had the findings as above. She was put in observation due to her intermittent troponin. This was trended down until it reached stable. She continued to only have sharp chest pains associated with her cough. No cardiac type chest pain. She did report having some palpitations in the past, but none during her hospitalization. Patient had resolution of her chest pain and improvement in her shortness of breath and her cough during her hospitalization. She had resolution of her fevers and she never required any oxygen during her hospitalization, so she is being discharged home. We did start her on some insulin during her hospitalization along with restarting metformin and she had improvement in her blood sugars which has been elevated on admission. She also had elevated blood pressures on admission and blood pressure medicines were increased as well and her blood pressure was under good control at discharge. DISCHARGE MANAGEMENT: Discharged home. ACTIVITY: As tolerated. DIET: Diabetic diet. THERAPIES: Patient needs to get herself subcu insulin. Her daughter is a diabetic and will help her with that. FOLLOWUP: With [facility] in 2 to [address] Poasdas for Cardiology in 3 to 4 weeks about her risk factors for heart disease and her previous palpitations. She may eventually benefit from a stress test once she is over her COVID infection. DISCHARGE MEDICATIONS: 1. Amlodipine 10 mg daily, 30 tablets dispensed. 2. Furosemide 40 mg daily, 30 tablets dispensed. 3. Insulin glargine 20 units subcu q.a.m., three vial dispensed. 4. Lisinopril 10 mg daily, 30 tablets dispensed. 5. Metformin 1000 mg twice a day, 60 tablets dispensed. 6. Metoprolol succinate 25 mg daily, 30 tablets dispensed. 7. Tessalon Perles 100 mg 2 tablets three times a day as needed for cough, 30 caps dispensed. Job ID: [id number] MTDD
== END 2019-09-03 16:23 | disposition home or self-care (01) ==
LOC: ERS 09:12 → 2SW 15:49
PROVIDERS: ADMIT Internal Medicine; ATTEND Internal Medicine
DX: U07.1 COVID-19 (principal); J12.89 Other viral pneumonia; R07.89 Other chest pain; R79.89 Other specified abnormal findings of blood chemistry; I10 Essential (primary) hypertension; E11.65 Type 2 diabetes mellitus with hyperglycemia; F32.9 Major depressive disorder, single episode, unspecified; Z79.84 Long term (current) use of oral hypoglycemic drugs; Z79.899 Other long term (current) drug therapy
CPT/HCPCS: 36415; 36416; 71275; 80048; 80053; 82010; 82553; 83036; 83605; 83880; 84484; 85025; 87040; 93005; 96361; 96365; 96366; 96372; 96375; G0378; J1650; J1815; J1885; J1956; J8540; Q9967

== ENCOUNTER 2022-02-23 12:49 | Inpatient (IN) | payer OTHER, SELFPAY ==
[2022-02-23 13:30] LABS: #Basophils 0.1 thou/uL (0.0-0.2); #Eosinphils 0.3 thou/uL (0.0-0.7); #Monocytes 0.5 thou/uL (0.11-0.59); #Neutrophils 3.9 thou/uL (1.40-6.50); %Basophils 1.1 % (0.0-1.0); %Eosinophils 5.5 % (0.0-10.0); %Lymphocytes 17.2 % (21.0-51.0); %Neutrophils 68.2 % (42.0-75.0); Hemoglobin 8.6 g/dL (12.0-16.0); Mean Corpuscular Hemoglobin 29.6 pg (27.0-31.0); Mean Corpuscular Volume 92.5 fl (78.0-98.0); Mean Platelet Volume 11.6 fL (7.4-10.4); Platelet Count 170 10x3/uL (130-400); RBC Distribution Width 13.4 % (11.5-14.5); Red Blood Cell (RBC) Count 2.91 mill/uL (4.20-5.40); White Blood Cell (WBC) Count 5.7 10x3/uL (4.8-10.8)
[2022-02-23] MEDS ORDERED: Furosemide 40 MG/4 ML VIAL ONE (13:41)
[2022-02-23 13:49] LABS: ALT (SGPT) 18 U/L (8-55); AST (SGOT) 13 U/L (5-34); Albumin 3.1 g/dL (3.5-5.0); Alkaline Phosphatase 349 U/L (40-110); Anion Gap 10 mmol/L (10-20); BUN (Urea Nitrogen) 21 mg/dL (9.8-20.1); Bilirubin, Total 0.3 mg/dL (0.2-1.2); Calc. Creatinine Clearance 0 mL/min (70-130); Carbon Dioxide 24 mmol/L (22-29); Chloride 110 mmol/L (98-107); Estimated GFR 46; Globulin 2.8 g/dL (2.4-3.5); Glucose 264 mg/dL (70-105); Potassium 4.4 mmol/L (3.5-5.1); Protein, Total 5.9 g/dL (6.0-8.3); Sodium 140 mmol/L (136-145)
[2022-02-23 14:10] LABS: CKMB 1.7 ng/mL (0-6.6)
[2022-02-23] MEDS ORDERED: Aspirin Chewable 81 MG TAB ONE (14:11)
[2022-02-23] MEDS ORDERED: Dextrose 5% in Water 1,000 ML IV PRN (15:25)
[2022-02-23] MEDS ORDERED: Dextrose 50% Abboject 50 ML SYRINGE SLOW IVP PRN (15:25)
[2022-02-23 16:35] VITALS: BMI 40.4
[2022-02-23] MEDS ORDERED: Ondansetron ODT 4 MG TAB SL PRN (17:15)
[2022-02-23] MEDS ORDERED: Ondansetron PF 4 MG/2 ML Vial IVP PRN (17:15)
[2022-02-23 17:33] LABS: Troponin I 0.165 ng/mL (< 0.028)
[2022-02-23] MEDS: HumaLOG 300 UNITS/3 ML VIAL SC PRN (18:06)
[2022-02-23] MEDS: Acetaminophen 325 MG TAB PO PRN ×2 (18:06→23:55)
[2022-02-23 19:59] LABS: Troponin I 0.127 ng/mL (< 0.028)
[2022-02-24] MEDS: Acetaminophen 325 MG TAB PO PRN (05:14)
[2022-02-24 05:16] LABS: #Eosinphils 0.3 thou/uL (0.0-0.7); #Lymphocytes 1.2 thou/uL (1.20-3.40); #Monocytes 0.4 thou/uL (0.11-0.59); #Neutrophils 3.3 thou/uL (1.40-6.50); %Basophils 0.8 % (0.0-1.0); %Eosinophils 6.5 % (0.0-10.0); %Lymphocytes 22.8 % (21.0-51.0); %Monocytes 7.2 % (0.0-10.0); %Neutrophils 62.7 % (42.0-75.0); Hemoglobin 9.3 g/dL (12.0-16.0); Mean Corpuscular HGB CONC 31.5 g/dL (32.0-36.0); Mean Corpuscular Hemoglobin 29.7 pg (27.0-31.0); Mean Corpuscular Volume 94.3 fl (78.0-98.0); Mean Platelet Volume 12.1 fL (7.4-10.4); Platelet Count 197 10x3/uL (130-400); RBC Distribution Width 13.7 % (11.5-14.5); Red Blood Cell (RBC) Count 3.13 mill/uL (4.20-5.40); White Blood Cell (WBC) Count 5.2 10x3/uL (4.8-10.8)
[2022-02-24] MEDS: Furosemide 40 MG/4 ML VIAL SLOW IVP SCH ×2 (05:16→16:08)
[2022-02-24 05:21] LABS: ALT (SGPT) 18 U/L (8-55); AST (SGOT) 12 U/L (5-34); Albumin 3.2 g/dL (3.5-5.0); Alkaline Phosphatase 343 U/L (40-110); Anion Gap 12 mmol/L (10-20); BUN (Urea Nitrogen) 20 mg/dL (9.8-20.1); Bilirubin, Total 0.4 mg/dL (0.2-1.2); Calc. Creatinine Clearance 78 mL/min (70-130); Calcium 8.4 mg/dL (7.8-10.44); Carbon Dioxide 24 mmol/L (22-29); Chloride 109 mmol/L (98-107); Estimated GFR 46; Globulin 2.9 g/dL (2.4-3.5); Glucose 178 mg/dL (70-105); Magnesium 2.2 mg/dL (1.6-2.6); Phosphorus 3.8 mg/dL (2.3-4.7); Potassium 4.2 mmol/L (3.5-5.1); Protein, Total 6.1 g/dL (6.0-8.3); Sodium 141 mmol/L (136-145)
[2022-02-24] MEDS: HumaLOG 300 UNITS/3 ML VIAL SC PRN ×2 (05:57→21:04)
[2022-02-24] MEDS: Enoxaparin Sodium 40 MG/0.4 ML SYRINGE SC SCH (08:13)
[2022-02-24] MEDS ORDERED: Acetaminophen 325 MG TAB PO PRN (16:01)
[2022-02-24] MEDS ORDERED: Carvedilol 6.25 MG TAB PO SCH (21:00)
[2022-02-24] MEDS ORDERED: Docusate 100 MG CAP PO SCH (21:00)
[2022-02-25] MEDS: Furosemide 40 MG/4 ML VIAL SLOW IVP SCH ×2 (05:22→13:56)
[2022-02-25 05:37] LABS: ALT (SGPT) 16 U/L (8-55); AST (SGOT) 12 U/L (5-34); Albumin 3.2 g/dL (3.5-5.0); Alkaline Phosphatase 335 U/L (40-110); Anion Gap 11 mmol/L (10-20); BUN (Urea Nitrogen) 20 mg/dL (9.8-20.1); Bilirubin, Total 0.4 mg/dL (0.2-1.2); Calc. Creatinine Clearance 76 mL/min (70-130); Calcium 8.6 mg/dL (7.8-10.44); Carbon Dioxide 24 mmol/L (22-29); Chloride 108 mmol/L (98-107); Estimated GFR 46; Glucose 202 mg/dL (70-105); Magnesium 2.2 mg/dL (1.6-2.6); Potassium 4.1 mmol/L (3.5-5.1); Protein, Total 6.2 g/dL (6.0-8.3); Sodium 139 mmol/L (136-145)
[2022-02-25] MEDS: HumaLOG 300 UNITS/3 ML VIAL SC PRN ×4 (05:54→21:16)
[2022-02-25] MEDS: Enoxaparin Sodium 40 MG/0.4 ML SYRINGE SC SCH (07:57)
[2022-02-25] MEDS: Carvedilol 6.25 MG TAB PO SCH ×2 (07:57→16:45)
[2022-02-25] MEDS: Aspirin 81 mg Enteric Coated Tablet PO SCH (07:58)
[2022-02-25] MEDS: Ferrous Sulfate 325 MG TAB PO SCH (07:58)
[2022-02-25] MEDS: Atorvastatin Calcium 40 MG TAB PO SCH (07:58)
[2022-02-25] MEDS: Aspirin Chewable 81 MG TAB PO SCH (07:58)
[2022-02-25] MEDS: Docusate 100 MG CAP PO SCH (07:58)
[2022-02-25] MEDS: Amlodipine 10 MG TAB PO SCH (09:24)
[2022-02-26 05:41] LABS: ALT (SGPT) 13 U/L (8-55); AST (SGOT) 11 U/L (5-34); Alkaline Phosphatase 275 U/L (40-110); Anion Gap 11 mmol/L (10-20); BUN (Urea Nitrogen) 22 mg/dL (9.8-20.1); Bilirubin, Total 0.4 mg/dL (0.2-1.2); Calc. Creatinine Clearance 77 mL/min (70-130); Calcium 8.4 mg/dL (7.8-10.44); Carbon Dioxide 27 mmol/L (22-29); Chloride 107 mmol/L (98-107); Estimated GFR 48; Globulin 2.8 g/dL (2.4-3.5); Glucose 186 mg/dL (70-105); Magnesium 2.1 mg/dL (1.6-2.6); Potassium 4.1 mmol/L (3.5-5.1); Protein, Total 5.8 g/dL (6.0-8.3); Sodium 141 mmol/L (136-145)
[2022-02-26] MEDS: HumaLOG 300 UNITS/3 ML VIAL SC PRN ×3 (05:57→21:05)
[2022-02-26] MEDS: Furosemide 40 MG/4 ML VIAL SLOW IVP SCH ×2 (05:57→14:30)
[2022-02-26] MEDS: Carvedilol 6.25 MG TAB PO SCH ×2 (08:47→17:48)
[2022-02-26] MEDS: Ferrous Sulfate 325 MG TAB PO SCH (08:49)
[2022-02-26] MEDS: Aspirin 81 mg Enteric Coated Tablet PO SCH (08:50)
[2022-02-26] MEDS: Amlodipine 10 MG TAB PO SCH (08:50)
[2022-02-26] MEDS: Atorvastatin Calcium 40 MG TAB PO SCH (08:51)
[2022-02-26] MEDS: Docusate 100 MG CAP PO SCH (08:51)
[2022-02-26] MEDS: Aspirin Chewable 81 MG TAB PO SCH (08:51)
[2022-02-26] MEDS: Enoxaparin Sodium 40 MG/0.4 ML SYRINGE SC SCH (09:04)
[2022-02-27 04:59] LABS: #Eosinphils 0.2 thou/uL (0.0-0.7); #Lymphocytes 0.9 thou/uL (1.20-3.40); #Monocytes 0.3 thou/uL (0.11-0.59); #Neutrophils 2.8 thou/uL (1.40-6.50); %Basophils 0.9 % (0.0-1.0); %Eosinophils 5.4 % (0.0-10.0); %Lymphocytes 21.3 % (21.0-51.0); %Monocytes 6.9 % (0.0-10.0); %Neutrophils 65.5 % (42.0-75.0); Hemoglobin 8.9 g/dL (12.0-16.0); Mean Corpuscular HGB CONC 31.6 g/dL (32.0-36.0); Mean Corpuscular Hemoglobin 29.3 pg (27.0-31.0); Mean Corpuscular Volume 92.7 fl (78.0-98.0); Mean Platelet Volume 12.3 fL (7.4-10.4); Platelet Count 163 10x3/uL (130-400); RBC Distribution Width 13.4 % (11.5-14.5); Red Blood Cell (RBC) Count 3.03 mill/uL (4.20-5.40); White Blood Cell (WBC) Count 4.3 10x3/uL (4.8-10.8)
[2022-02-27 05:21] LABS: Anion Gap 11 mmol/L (10-20); Calc. Creatinine Clearance 78 mL/min (70-130); Calcium 8.3 mg/dL (7.8-10.44); Carbon Dioxide 26 mmol/L (22-29); Chloride 106 mmol/L (98-107); Estimated GFR 49; Glucose 254 mg/dL (70-105); Potassium 4.4 mmol/L (3.5-5.1); Sodium 139 mmol/L (136-145)
[2022-02-27] MEDS: Furosemide 40 MG/4 ML VIAL SLOW IVP SCH ×2 (05:58→14:44)
[2022-02-27] MEDS: HumaLOG 300 UNITS/3 ML VIAL SC PRN (05:58)
[2022-02-27] MEDS: Ferrous Sulfate 325 MG TAB PO SCH (07:58)
[2022-02-27] MEDS: Carvedilol 6.25 MG TAB PO SCH ×2 (07:58→16:53)
[2022-02-27 08:22] LABS: BUN (Urea Nitrogen) 23 mg/dL (9.8-20.1)
[2022-02-27] MEDS ORDERED: NPH, Human Insulin Isophane 300 UNIT/3 ML VIAL SC SCH (09:00)
[2022-02-27] MEDS: Enoxaparin Sodium 40 MG/0.4 ML SYRINGE SC SCH (09:46)
[2022-02-27] MEDS: Docusate 100 MG CAP PO SCH (09:48)
[2022-02-27] MEDS: Amlodipine 10 MG TAB PO SCH (09:48)
[2022-02-27] MEDS: Aspirin 81 mg Enteric Coated Tablet PO SCH (09:48)
[2022-02-27] MEDS: Atorvastatin Calcium 40 MG TAB PO SCH (09:48)
[2022-02-27] MEDS: Insulin NPH Human Isophane 100 UNIT/ML (10 ML VIAL) SC SCH (11:41)
[2022-02-28 05:34] LABS: Anion Gap 12 mmol/L (10-20); BUN (Urea Nitrogen) 24 mg/dL (9.8-20.1); Calc. Creatinine Clearance 73 mL/min (70-130); Carbon Dioxide 27 mmol/L (22-29); Chloride 106 mmol/L (98-107); Sodium 141 mmol/L (136-145)
[2022-02-28 05:35] LABS: Calcium 8.3 mg/dL (7.8-10.44); Estimated GFR 46; Glucose 218 mg/dL (70-105)
[2022-02-28] MEDS: HumaLOG 300 UNITS/3 ML VIAL SC PRN (05:52)
[2022-02-28] MEDS: Enoxaparin Sodium 40 MG/0.4 ML SYRINGE SC SCH (08:39)
[2022-02-28] MEDS: Furosemide 40 MG/4 ML VIAL SLOW IVP SCH (08:41)
[2022-02-28] MEDS: Ferrous Sulfate 325 MG TAB PO SCH (08:41)
[2022-02-28] MEDS: Carvedilol 6.25 MG TAB PO SCH ×2 (08:41→16:58)
[2022-02-28] MEDS: Atorvastatin Calcium 40 MG TAB PO SCH (08:41)
[2022-02-28] MEDS: Aspirin 81 mg Enteric Coated Tablet PO SCH (08:41)
[2022-02-28] MEDS: Docusate 100 MG CAP PO SCH (08:41)
[2022-02-28] MEDS: Amlodipine 10 MG TAB PO SCH (08:42)
[2022-02-28] MEDS: Insulin NPH Human Isophane 100 UNIT/ML (10 ML VIAL) SC SCH (08:42)
[2022-02-28] MEDS ORDERED: traMADol HCl 50 MG TAB PO SCH (21:45)
[2022-03-01 03:25] VITALS: TEMP 97.8
[2022-03-01 06:55] LABS: Anion Gap 10 mmol/L (10-20); BUN (Urea Nitrogen) 25 mg/dL (9.8-20.1); Calc. Creatinine Clearance 76 mL/min (70-130); Calcium 8.4 mg/dL (7.8-10.44); Carbon Dioxide 27 mmol/L (22-29); Chloride 105 mmol/L (98-107); Estimated GFR 47; Glucose 156 mg/dL (70-105); Potassium 4.1 mmol/L (3.5-5.1); Sodium 138 mmol/L (136-145)
[2022-03-01] MEDS: Amlodipine 10 MG TAB PO SCH (09:41)
[2022-03-01] MEDS: Aspirin 81 mg Enteric Coated Tablet PO SCH (09:41)
[2022-03-01] MEDS: Enoxaparin Sodium 40 MG/0.4 ML SYRINGE SC SCH (09:41)
[2022-03-01] MEDS: Atorvastatin Calcium 40 MG TAB PO SCH (09:41)
[2022-03-01] MEDS: Carvedilol 6.25 MG TAB PO SCH (09:41)
[2022-03-01] MEDS: Ferrous Sulfate 325 MG TAB PO SCH (09:42)
[2022-03-01] MEDS: Docusate 100 MG CAP PO SCH (09:42)
[2022-03-01] MEDS: Insulin NPH Human Isophane 100 UNIT/ML (10 ML VIAL) SC SCH (09:42)
[2022-03-01] MEDS: Furosemide 40 MG/4 ML VIAL SLOW IVP SCH (09:43)
[2022-03-01 12:02] VITALS: BP 158/69
[2022-03-02] MEDS ORDERED: Furosemide 40 MG TAB PO SCH (07:30)
== END 2022-03-01 12:00 | disposition home or self-care (01) | DRG 280 ==
LOC: SUATTDRO 12:49 → ERS 12:49 → 2SW 16:28
PROVIDERS: ADMIT Family Medicine; ATTEND Internal Medicine
DX: I13.0 Hypertensive heart and chronic kidney disease with heart failure and stage 1 through stage 4 chronic kidney disease, or unspecified chronic kidney disease (principal); I21.A1 Myocardial infarction type 2; I50.33 Acute on chronic diastolic (congestive) heart failure; N17.9 Acute kidney failure, unspecified; N18.30 Chronic kidney disease, stage 3 unspecified; E78.5 Hyperlipidemia, unspecified; F32.A Depression, unspecified; K21.9 Gastro-esophageal reflux disease without esophagitis; K76.1 Chronic passive congestion of liver; D53.9 Nutritional anemia, unspecified; Z79.4 Long term (current) use of insulin; Z79.84 Long term (current) use of oral hypoglycemic drugs; Z79.899 Other long term (current) drug therapy; Z79.82 Long term (current) use of aspirin
CPT/HCPCS: 36415; 36416; 71045; 80048; 80053; 82553; 82977; 83036; 83735; 83880; 84100; 84443; 84484; 85025; 93005; 93306; 93798; 96374; J1650; J1815; J1940; U0003; U0005

== ENCOUNTER 2022-04-01 11:10 | Inpatient (IN) | payer MEDICAID, SELFPAY ==
[2022-04-01 12:53] LABS: #Eosinphils 0.1 thou/uL (0.0-0.7); #Monocytes 0.4 thou/uL (0.11-0.59); #Neutrophils 3.7 thou/uL (1.40-6.50); %Basophils 0.9 % (0.0-1.0); %Eosinophils 2.6 % (0.0-10.0); %Lymphocytes 18.3 % (21.0-51.0); %Monocytes 7.6 % (0.0-10.0); %Neutrophils 70.6 % (42.0-75.0); Hemoglobin 9.5 g/dL (12.0-16.0); Mean Corpuscular HGB CONC 32.3 g/dL (32.0-36.0); Mean Corpuscular Hemoglobin 29.1 pg (27.0-31.0); Mean Corpuscular Volume 90.1 fl (78.0-98.0); Mean Platelet Volume 11.5 fL (7.4-10.4); Platelet Count 194 10x3/uL (130-400); RBC Distribution Width 14.6 % (11.5-14.5); Red Blood Cell (RBC) Count 3.25 mill/uL (4.20-5.40); White Blood Cell (WBC) Count 5.2 10x3/uL (4.8-10.8)
[2022-04-01] MEDS ORDERED: Furosemide 40 MG/4 ML VIAL ONE (13:06)
[2022-04-01 13:20] LABS: ALT (SGPT) 12 U/L (8-55); AST (SGOT) 19 U/L (5-34); Albumin 3.3 g/dL (3.5-5.0); Alkaline Phosphatase 491 U/L (40-110); Anion Gap 9 mmol/L (10-20); BUN (Urea Nitrogen) 14 mg/dL (9.8-20.1); Bilirubin, Total 0.8 mg/dL (0.2-1.2); Calc. Creatinine Clearance 0 mL/min (70-130); Calcium 8.4 mg/dL (7.8-10.44); Carbon Dioxide 24 mmol/L (22-29); Chloride 111 mmol/L (98-107); Estimated GFR 53; Globulin 3.6 g/dL (2.4-3.5); Glucose 157 mg/dL (70-105); Lipase 8 U/L (8-78); Protein, Total 6.9 g/dL (6.0-8.3); Sodium 139 mmol/L (136-145)
[2022-04-01 13:29] LABS: Bacteria/HPF None Seen HPF (None Seen); Bilirubin Negative (Negative); Blood, Urine 1+ (Negative); Clarity Clear (Clear); Glucose, Urine (Dipstick) 200 mg/dL (Negative); Ketone, Urine Negative (Negative); Leukocyte Negative Leu/uL (Negative); Nitrite Negative (Negative); Protein, Urine (Dipstick) 300 mg/dL (Neg-Trace); RBC/HPF 0-3 HPF (0-3); Specific Gravity, Urine 1.018 (1.002-1.036); Squamous Epithelial 0-3 HPF (0-3); Urobilinogen Normal mg/dL (Less than 2); WBC/HPF 0-3 HPF (0-3); pH, Urine 6.5 (5.0-9.0)
[2022-04-01 13:37] LABS: CKMB 2.4 ng/mL (0-6.6)
[2022-04-01] MEDS ORDERED: Ondansetron ODT 4 MG TAB PO PRN (14:14)
[2022-04-01] MEDS ORDERED: Dextrose 50% Abboject 50 ML SYRINGE SLOW IVP PRN (14:22)
[2022-04-01] MEDS ORDERED: Dextrose 5% in Water 1,000 ML IV PRN (14:22)
[2022-04-01] MEDS ORDERED: Amlodipine 10 MG TAB PO SCH (14:45)
[2022-04-01] MEDS: Heparin 5,000 UNITS/ML VIAL SC SCH ×2 (15:00→21:15)
[2022-04-01] MEDS ORDERED: Iopamidol-370 76% 500 ML 1 ML ONE (15:09)
[2022-04-01 16:11] LABS: ALT (SGPT) 16 U/L (8-55); AST (SGOT) 15 U/L (5-34); Albumin 3.1 g/dL (3.5-5.0); Alkaline Phosphatase 490 U/L (40-110); Anion Gap 12 mmol/L (10-20); BUN (Urea Nitrogen) 16 mg/dL (9.8-20.1); Bilirubin, Total 0.7 mg/dL (0.2-1.2); Calc. Creatinine Clearance 0 mL/min (70-130); Calcium 8.3 mg/dL (7.8-10.44); Carbon Dioxide 22 mmol/L (22-29); Chloride 110 mmol/L (98-107); Estimated GFR 53; Globulin 3.3 g/dL (2.4-3.5); Glucose 134 mg/dL (70-105); Magnesium 2.6 mg/dL (1.6-2.6); Phosphorus 3.9 mg/dL (2.3-4.7); Potassium 4.7 mmol/L (3.5-5.1); Protein, Total 6.4 g/dL (6.0-8.3); Sodium 139 mmol/L (136-145)
[2022-04-01 17:53] VITALS: BMI 36.9
[2022-04-01 18:17] LABS: Troponin I 0.154 ng/mL (< 0.028)
[2022-04-01 19:43] LABS: Troponin I 0.172 ng/mL (< 0.028)
[2022-04-01] MEDS: Senokot S 8.6-50 MG TAB PO PRN (21:16)
[2022-04-01 21:59] LABS: SARS-CoV-2 NAA Rapid Test Not Detected (NotDetected)
[2022-04-02] MEDS: Furosemide 100 MG/10 ML VIAL SLOW IVP SCH ×2 (05:11→15:20)
[2022-04-02 05:14] LABS: Anion Gap 10 mmol/L (10-20); BUN (Urea Nitrogen) 14 mg/dL (9.8-20.1); Calc. Creatinine Clearance 80 mL/min (70-130); Calcium 8.4 mg/dL (7.8-10.44); Carbon Dioxide 23 mmol/L (22-29); Chloride 111 mmol/L (98-107); Estimated GFR 50; Glucose 152 mg/dL (70-105); Potassium 4.8 mmol/L (3.5-5.1); Sodium 139 mmol/L (136-145)
[2022-04-02] MEDS: Carvedilol 6.25 MG TAB PO SCH ×2 (09:22→17:40)
[2022-04-02] MEDS: Atorvastatin Calcium 40 MG TAB PO SCH (09:22)
[2022-04-02] MEDS: Aspirin Chewable 81 MG TAB PO SCH (09:22)
[2022-04-02] MEDS: Amlodipine 10 MG TAB PO SCH (09:22)
[2022-04-02] MEDS: Heparin 5,000 UNITS/ML VIAL SC SCH ×3 (09:23→20:28)
[2022-04-02] MEDS: Ferrous Sulfate 325 MG TAB PO SCH (09:23)
[2022-04-02] MEDS: Docusate 100 MG CAP PO SCH (09:24)
[2022-04-02] MEDS: Insulin Regular 300 UNITS/3 ML VIAL SC PRN (20:33)
[2022-04-03 05:24] LABS: Anion Gap 12 mmol/L (10-20); BUN (Urea Nitrogen) 20 mg/dL (9.8-20.1); Calc. Creatinine Clearance 65 mL/min (70-130); Calcium 8.1 mg/dL (7.8-10.44); Carbon Dioxide 22 mmol/L (22-29); Chloride 109 mmol/L (98-107); Estimated GFR 41; Glucose 234 mg/dL (70-105); Sodium 138 mmol/L (136-145)
[2022-04-03] MEDS: Furosemide 100 MG/10 ML VIAL SLOW IVP SCH ×2 (05:52→14:38)
[2022-04-03] MEDS: Insulin Regular 300 UNITS/3 ML VIAL SC PRN ×3 (05:52→18:01)
[2022-04-03] MEDS: Docusate 100 MG CAP PO SCH (09:31)
[2022-04-03] MEDS: Amlodipine 10 MG TAB PO SCH (09:31)
[2022-04-03] MEDS: Carvedilol 6.25 MG TAB PO SCH ×2 (09:31→18:01)
[2022-04-03] MEDS: Atorvastatin Calcium 40 MG TAB PO SCH (09:31)
[2022-04-03] MEDS: Aspirin Chewable 81 MG TAB PO SCH (09:31)
[2022-04-03] MEDS: Heparin 5,000 UNITS/ML VIAL SC SCH ×3 (09:31→20:57)
[2022-04-03] MEDS: hydrALAZINE 25 MG TAB PO SCH ×3 (09:32→20:57)
[2022-04-03] MEDS: Ferrous Sulfate 325 MG TAB PO SCH (09:32)
[2022-04-03] MEDS: Senokot S 8.6-50 MG TAB PO PRN (14:45)
[2022-04-03] MEDS: Acetaminophen 325 MG TAB PO PRN (18:35)
[2022-04-04] MEDS: Senokot S 8.6-50 MG TAB PO PRN (03:32)
[2022-04-04 05:44] LABS: Anion Gap 11 mmol/L (10-20); BUN (Urea Nitrogen) 20 mg/dL (9.8-20.1); Calc. Creatinine Clearance 64 mL/min (70-130); Carbon Dioxide 24 mmol/L (22-29); Chloride 108 mmol/L (98-107); Estimated GFR 40; Glucose 170 mg/dL (70-105); Potassium 4.4 mmol/L (3.5-5.1); Sodium 139 mmol/L (136-145)
[2022-04-04] MEDS: Insulin Regular 300 UNITS/3 ML VIAL SC PRN ×4 (06:00→21:00)
[2022-04-04] MEDS: Furosemide 100 MG/10 ML VIAL SLOW IVP SCH ×2 (06:01→15:49)
[2022-04-04] MEDS: Amlodipine 10 MG TAB PO SCH (08:21)
[2022-04-04] MEDS: hydrALAZINE 25 MG TAB PO SCH ×3 (08:21→20:50)
[2022-04-04] MEDS: Aspirin Chewable 81 MG TAB PO SCH (08:21)
[2022-04-04] MEDS: Carvedilol 6.25 MG TAB PO SCH ×2 (08:21→15:50)
[2022-04-04] MEDS: Atorvastatin Calcium 40 MG TAB PO SCH (08:22)
[2022-04-04] MEDS: Heparin 5,000 UNITS/ML VIAL SC SCH ×3 (08:22→20:50)
[2022-04-04] MEDS: Docusate 100 MG CAP PO SCH (08:22)
[2022-04-04] MEDS: Ferrous Sulfate 325 MG TAB PO SCH (08:22)
[2022-04-04] MEDS: Polyethylene Glycol 3350 17 GM Packet PO SCH (09:24)
[2022-04-04] MEDS: diphenhydrAMINE 30 GM TUBE TOP PRN ×2 (09:42→21:01)
[2022-04-05] MEDS: diphenhydrAMINE 30 GM TUBE TOP PRN ×2 (04:42→22:21)
[2022-04-05 05:23] LABS: Anion Gap 14 mmol/L (10-20); BUN (Urea Nitrogen) 21 mg/dL (9.8-20.1); Calc. Creatinine Clearance 68 mL/min (70-130); Calcium 8.2 mg/dL (7.8-10.44); Carbon Dioxide 22 mmol/L (22-29); Chloride 107 mmol/L (98-107); Estimated GFR 44; Glucose 164 mg/dL (70-105); Potassium 4.7 mmol/L (3.5-5.1); Sodium 138 mmol/L (136-145)
[2022-04-05] MEDS: Furosemide 100 MG/10 ML VIAL SLOW IVP SCH ×2 (05:32→15:20)
[2022-04-05] MEDS: Insulin Regular 300 UNITS/3 ML VIAL SC PRN ×3 (05:32→22:12)
[2022-04-05] MEDS: Carvedilol 6.25 MG TAB PO SCH ×2 (09:32→17:59)
[2022-04-05] MEDS: Heparin 5,000 UNITS/ML VIAL SC SCH ×3 (09:32→22:11)
[2022-04-05] MEDS: hydrALAZINE 25 MG TAB PO SCH ×3 (09:32→22:11)
[2022-04-05] MEDS: Ferrous Sulfate 325 MG TAB PO SCH (09:32)
[2022-04-05] MEDS: Amlodipine 10 MG TAB PO SCH (09:32)
[2022-04-05] MEDS: Atorvastatin Calcium 40 MG TAB PO SCH (09:33)
[2022-04-05] MEDS: Aspirin Chewable 81 MG TAB PO SCH (09:33)
[2022-04-05] MEDS: Docusate 100 MG CAP PO SCH (09:33)
[2022-04-05] MEDS: Polyethylene Glycol 3350 17 GM Packet PO SCH (09:33)
[2022-04-05] MEDS: Acetaminophen 325 MG TAB PO PRN (22:23)
[2022-04-05] MEDS ORDERED: Mag-Al 1200 mg/1200 mg/30 ML UDCUP PO SCH (22:45)
[2022-04-06 05:34] LABS: Anion Gap 11 mmol/L (10-20); BUN (Urea Nitrogen) 23 mg/dL (9.8-20.1); Calc. Creatinine Clearance 70 mL/min (70-130); Calcium 8.2 mg/dL (7.8-10.44); Carbon Dioxide 26 mmol/L (22-29); Chloride 105 mmol/L (98-107); Estimated GFR 46; Glucose 204 mg/dL (70-105); Potassium 4.4 mmol/L (3.5-5.1); Sodium 138 mmol/L (136-145)
[2022-04-06] MEDS: Insulin Regular 300 UNITS/3 ML VIAL SC PRN ×5 (05:46→20:50)
[2022-04-06] MEDS: Furosemide 100 MG/10 ML VIAL SLOW IVP SCH (05:46)
[2022-04-06] MEDS: Polyethylene Glycol 3350 17 GM Packet PO SCH (08:43)
[2022-04-06] MEDS: Amlodipine 10 MG TAB PO SCH (08:43)
[2022-04-06] MEDS: hydrALAZINE 25 MG TAB PO SCH ×3 (08:43→20:01)
[2022-04-06] MEDS: Atorvastatin Calcium 40 MG TAB PO SCH (08:44)
[2022-04-06] MEDS: Ferrous Sulfate 325 MG TAB PO SCH (08:44)
[2022-04-06] MEDS: Carvedilol 6.25 MG TAB PO SCH ×2 (08:44→17:26)
[2022-04-06] MEDS: Aspirin Chewable 81 MG TAB PO SCH (08:44)
[2022-04-06] MEDS: Docusate 100 MG CAP PO SCH (08:44)
[2022-04-06] MEDS: Heparin 5,000 UNITS/ML VIAL SC SCH ×3 (08:45→20:02)
[2022-04-06] MEDS: Furosemide 40 MG TAB PO SCH (14:30)
[2022-04-06] MEDS: diphenhydrAMINE 30 GM TUBE TOP PRN (17:27)
[2022-04-07] MEDS ORDERED: cloNIDine 0.1 MG TAB PO SCH (05:15)
[2022-04-07] MEDS: diphenhydrAMINE 30 GM TUBE TOP PRN (05:27)
[2022-04-07 05:57] LABS: Anion Gap 10 mmol/L (10-20); BUN (Urea Nitrogen) 21 mg/dL (9.8-20.1); Calc. Creatinine Clearance 66 mL/min (70-130); Calcium 8.4 mg/dL (7.8-10.44); Carbon Dioxide 27 mmol/L (22-29); Chloride 104 mmol/L (98-107); Estimated GFR 45; Glucose 190 mg/dL (70-105); Potassium 4.3 mmol/L (3.5-5.1); Sodium 137 mmol/L (136-145)
[2022-04-07] MEDS: Carvedilol 6.25 MG TAB PO SCH (08:14)
[2022-04-07] MEDS: hydrALAZINE 25 MG TAB PO SCH (08:14)
[2022-04-07] MEDS: Polyethylene Glycol 3350 17 GM Packet PO SCH (08:15)
[2022-04-07] MEDS: Aspirin Chewable 81 MG TAB PO SCH (08:15)
[2022-04-07] MEDS: Ferrous Sulfate 325 MG TAB PO SCH (08:15)
[2022-04-07] MEDS: Amlodipine 10 MG TAB PO SCH (08:15)
[2022-04-07] MEDS: Furosemide 40 MG TAB PO SCH (08:15)
[2022-04-07] MEDS: Atorvastatin Calcium 40 MG TAB PO SCH (08:15)
[2022-04-07] MEDS: Docusate 100 MG CAP PO SCH (08:15)
[2022-04-07] MEDS: Heparin 5,000 UNITS/ML VIAL SC SCH (08:16)
[2022-04-07 09:23] VITALS: BP 186/78; TEMP 98.3
== END 2022-04-07 11:35 | disposition home or self-care (01) | DRG 280 ==
LOC: ERS 11:10 → ERHOLD 14:16 → 2SW 16:03
PROVIDERS: ADMIT Internal Medicine; ATTEND Hospitalist
DX: I13.0 Hypertensive heart and chronic kidney disease with heart failure and stage 1 through stage 4 chronic kidney disease, or unspecified chronic kidney disease (principal); I50.33 Acute on chronic diastolic (congestive) heart failure; I21.A1 Myocardial infarction type 2; J96.01 Acute respiratory failure with hypoxia; E11.319 Type 2 diabetes mellitus with unspecified diabetic retinopathy without macular edema; N18.2 Chronic kidney disease, stage 2 (mild); E11.22 Type 2 diabetes mellitus with diabetic chronic kidney disease; E66.9 Obesity, unspecified; E78.00 Pure hypercholesterolemia, unspecified; F32.A Depression, unspecified; E11.65 Type 2 diabetes mellitus with hyperglycemia; Z20.822 Contact with and (suspected) exposure to COVID-19; Z79.899 Other long term (current) drug therapy; Z79.4 Long term (current) use of insulin; Z79.82 Long term (current) use of aspirin; Z91.14 Patient's other noncompliance with medication regimen; Z79.84 Long term (current) use of oral hypoglycemic drugs; Z68.33 Body mass index [BMI] 33.0-33.9, adult
CPT/HCPCS: 36415; 36416; 51702; 71045; 74177; 80048; 80053; 81003; 81015; 82553; 83690; 83735; 83880; 84100; 84145; 84484; 85025; 93005; 96374; J1644; J1815; J1940; Q0162; Q9967; U0002

== ENCOUNTER 2022-08-16 20:13 | Inpatient (IN) | payer MEDICAID, SELFPAY ==
[2022-08-16 20:44] LABS: Hemoglobin 9.8 g/dL (12.0-16.0); Mean Corpuscular HGB CONC 31.8 g/dL (32.0-36.0); Mean Corpuscular Hemoglobin 29.8 pg (27.0-31.0); Mean Corpuscular Volume 93.6 fl (78.0-98.0); Mean Platelet Volume 13.2 fL (7.4-10.4); Platelet Count 236 10x3/uL (130-400); RBC Distribution Width 16.3 % (11.5-14.5); Red Blood Cell (RBC) Count 3.29 mill/uL (4.20-5.40); White Blood Cell (WBC) Count 10.3 10x3/uL (4.8-10.8)
[2022-08-16] MEDS ORDERED: Ipratropium/Albuterol 3 ML NEB ONE (20:57)
[2022-08-16 20:59] LABS: Delete Auto Diff?? YES; Manual Diff?? YES
[2022-08-16 21:21] LABS: Anisocytosis MODERATE=16-30 cells HPF (0-5); Band 16 % (5-11); CellaVision Operator ID LAB.JMM; Large Platelets 8.9 % (0-5); Lymphocytes 7 % (21-51); Macrocytosis SLIGHT = 6-15 cells HPF (0-5); Metamyelocyte 3 % (0-0); Neutrophil 73 % (42-75); Platelet Adequacy Comment Platelets Normal; Polychromasia SLIGHT = 2-3 cells HPF (0-2); Total Cell Count 101
[2022-08-16 21:31] LABS: ALT (SGPT) 18 U/L (8-55); AST (SGOT) 22 U/L (5-34); Alkaline Phosphatase 884 U/L (40-110); Anion Gap 15 mmol/L (10-20); BUN (Urea Nitrogen) 35 mg/dL (9.8-20.1); Bilirubin, Total 1.3 mg/dL (0.2-1.2); Calc. Creatinine Clearance 0 mL/min (70-130); Calcium 8.5 mg/dL (7.8-10.44); Carbon Dioxide 21 mmol/L (22-29); Chloride 106 mmol/L (98-107); Estimated GFR 27; Globulin 4.1 g/dL (2.4-3.5); Glucose 200 mg/dL (70-105); Potassium 5.1 mmol/L (3.5-5.1); Protein, Total 7.1 g/dL (6.0-8.3); Sodium 137 mmol/L (136-145)
[2022-08-16] MEDS ORDERED: Furosemide 100 MG/10 ML VIAL ONE (22:27)
[2022-08-16] MEDS ORDERED: Nitroglycerin 2% Ointment 1 INCH/1 GM Packet ONE (22:27)
[2022-08-16] MEDS ORDERED: Acetaminophen 500 MG TAB ONE (22:27)
[2022-08-16] MEDS ORDERED: Aspirin Chewable 81 MG TAB ONE (22:27)
[2022-08-16] MEDS ORDERED: cefTRIAXone (ROCEPHIN) 2 GM VIAL ONE (22:27)
[2022-08-16] MEDS ORDERED: Azithromycin 500 MG VIAL ONE (23:05)
[2022-08-16] MEDS ORDERED: Ondansetron ODT 4 MG TAB PO PRN (23:44)
[2022-08-16] MEDS ORDERED: Ondansetron PF 4 MG/2 ML Vial IVP PRN (23:44)
[2022-08-17 00:25] LABS: Troponin I 0.172 ng/mL (< 0.028)
[2022-08-17] MEDS ORDERED: Glucagon 1 MG/ML KIT IM PRN (00:59)
[2022-08-17] MEDS ORDERED: HumaLOG 300 UNITS/3 ML VIAL SC PRN (00:59)
[2022-08-17] MEDS ORDERED: Dextrose 50% Abboject 50 ML SYRINGE SLOW IVP PRN (00:59)
[2022-08-17] MEDS ORDERED: Dextrose 5% in Water 1,000 ML IV PRN (00:59)
[2022-08-17 02:33] LABS: #Neutrophils 5.5 thou/uL (1.40-6.50); %Basophils 0.3 % (0.0-1.0); %Eosinophils 0.1 % (0.0-10.0); %Lymphocytes 8.6 % (21.0-51.0); %Monocytes 13.3 % (0.0-10.0); %Neutrophils 77.4 % (42.0-75.0); Hemoglobin 8.4 g/dL (12.0-16.0); Mean Corpuscular HGB CONC 31.5 g/dL (32.0-36.0); Mean Corpuscular Hemoglobin 29.4 pg (27.0-31.0); Mean Corpuscular Volume 93.4 fl (78.0-98.0); Mean Platelet Volume 12.9 fL (7.4-10.4); Platelet Count 192 10x3/uL (130-400); RBC Distribution Width 16.1 % (11.5-14.5); Red Blood Cell (RBC) Count 2.86 mill/uL (4.20-5.40); White Blood Cell (WBC) Count 7.1 10x3/uL (4.8-10.8)
[2022-08-17] MEDS: Azithromycin 500 MG in Sodium Chloride 0.9% 250 ML 250 ML IVPB SCH (02:39)
[2022-08-17] MEDS: cefTRIAXone\\ROCEPHIN 1 GM in Sodium Chloride 0.9% 100 ML IVPB SCH (02:39)
[2022-08-17 03:03] LABS: Troponin I 0.159 ng/mL (< 0.028)
[2022-08-17 03:04] LABS: Anion Gap 13 mmol/L (10-20); BUN (Urea Nitrogen) 37 mg/dL (9.8-20.1); Calc. Creatinine Clearance 47 mL/min (70-130); Carbon Dioxide 22 mmol/L (22-29); Chloride 106 mmol/L (98-107); Estimated GFR 29; Glucose 204 mg/dL (70-105); Iron 11 ug/dL (50-170); Iron Binding Capacity, Total 203 mcg/dL (265-497); Magnesium 2.3 mg/dL (1.6-2.6); Potassium 4.9 mmol/L (3.5-5.1); Sodium 136 mmol/L (136-145)
[2022-08-17 04:04] LABS: Bacteria/HPF None Seen HPF (None Seen); Bilirubin Negative (Negative); Blood, Urine 1+ (Negative); CAUTI Indications for Culture Dysuria,urgency,freq; Clarity Clear (Clear); Glucose, Urine (Dipstick) >=1000 mg/dL (Negative); Ketone, Urine Negative (Negative); Leukocyte Negative Leu/uL (Negative); Nitrite Negative (Negative); Protein, Urine (Dipstick) 600 mg/dL (Neg-Trace); RBC/HPF 0-3 HPF (0-3); Specific Gravity, Urine 1.013 (1.002-1.036); Squamous Epithelial 0-3 HPF (0-3); Urobilinogen Normal mg/dL (Less than 2); WBC/HPF 0-3 HPF (0-3)
[2022-08-17 04:09] LABS: Urine Culture Reflex No No
[2022-08-17 04:25] LABS: Ferritin 110.2 ng/mL (10-291)
[2022-08-17] MEDS: Furosemide 40 MG/4 ML VIAL SLOW IVP SCH ×2 (06:45→12:58)
[2022-08-17] MEDS: Aspirin Chewable 81 MG TAB PO SCH (09:08)
[2022-08-17] MEDS: Heparin 5,000 UNITS/ML VIAL SC SCH ×2 (09:09→21:25)
[2022-08-17] MEDS: Carvedilol 6.25 MG TAB PO SCH ×2 (09:09→21:26)
[2022-08-17] MEDS ORDERED: guaiFENesin/DM ER PO SCH (11:45)
[2022-08-17] MEDS: Acetaminophen 325 MG TAB PO PRN (14:57)
[2022-08-17] MEDS: HumuLIN 70/30 100 Unit/ ml Vial SC SCH (16:25)
[2022-08-17] MEDS: guaiFENesin/DM ER PO SCH (21:26)
[2022-08-17] MEDS: Atorvastatin Calcium 40 MG TAB PO SCH (21:26)
[2022-08-18] MEDS: cefTRIAXone\\ROCEPHIN 1 GM in Sodium Chloride 0.9% 100 ML IVPB SCH (01:19)
[2022-08-18] MEDS: Azithromycin 500 MG in Sodium Chloride 0.9% 250 ML 250 ML IVPB SCH (01:19)
[2022-08-18] MEDS: Ipratropium/Albuterol 3 ML NEB NEB PRN (03:59)
[2022-08-18 04:54] LABS: Hemoglobin 8.2 g/dL (12.0-16.0); Mean Corpuscular HGB CONC 30.7 g/dL (32.0-36.0); Mean Corpuscular Hemoglobin 29.2 pg (27.0-31.0); Mean Platelet Volume 13.3 fL (7.4-10.4); Platelet Count 193 10x3/uL (130-400); RBC Distribution Width 15.9 % (11.5-14.5); Red Blood Cell (RBC) Count 2.81 mill/uL (4.20-5.40); White Blood Cell (WBC) Count 5.4 10x3/uL (4.8-10.8)
[2022-08-18] MEDS: Furosemide 40 MG/4 ML VIAL SLOW IVP SCH ×2 (05:11→13:32)
[2022-08-18 05:18] LABS: Anion Gap 13 mmol/L (10-20); BUN (Urea Nitrogen) 42 mg/dL (9.8-20.1); Calc. Creatinine Clearance 44 mL/min (70-130); Carbon Dioxide 22 mmol/L (22-29); Chloride 105 mmol/L (98-107); Estimated GFR 26; Glucose 98 mg/dL (70-105); Potassium 4.8 mmol/L (3.5-5.1); Sodium 135 mmol/L (136-145)
[2022-08-18] MEDS: Amlodipine 10 MG TAB PO SCH (08:59)
[2022-08-18] MEDS: Aspirin Chewable 81 MG TAB PO SCH (08:59)
[2022-08-18] MEDS: Carvedilol 6.25 MG TAB PO SCH ×2 (08:59→21:42)
[2022-08-18] MEDS: guaiFENesin/DM ER PO SCH ×2 (09:00→21:43)
[2022-08-18] MEDS: HumuLIN 70/30 100 Unit/ ml Vial SC SCH ×2 (09:01→16:03)
[2022-08-18] MEDS: Heparin 5,000 UNITS/ML VIAL SC SCH ×2 (09:01→21:43)
[2022-08-18] MEDS ORDERED: Senokot S 8.6-50 MG TAB PO PRN (13:21)
[2022-08-18] MEDS ORDERED: Polyethylene Glycol 3350 17 GM Packet PO SCH (13:30)
[2022-08-18] MEDS: Atorvastatin Calcium 40 MG TAB PO SCH (21:42)
[2022-08-19] MEDS: cefTRIAXone\\ROCEPHIN 1 GM in Sodium Chloride 0.9% 100 ML IVPB SCH (03:11)
[2022-08-19] MEDS: Azithromycin 500 MG in Sodium Chloride 0.9% 250 ML 250 ML IVPB SCH (03:43)
[2022-08-19] MEDS: Furosemide 40 MG/4 ML VIAL SLOW IVP SCH ×2 (06:06→13:40)
[2022-08-19] MEDS: HumuLIN 70/30 100 Unit/ ml Vial SC SCH ×2 (06:46→18:31)
[2022-08-19] MEDS: Amlodipine 10 MG TAB PO SCH (08:25)
[2022-08-19] MEDS: Carvedilol 6.25 MG TAB PO SCH ×2 (08:25→21:11)
[2022-08-19] MEDS: Aspirin Chewable 81 MG TAB PO SCH (08:25)
[2022-08-19] MEDS: guaiFENesin/DM ER PO SCH ×2 (08:26→20:27)
[2022-08-19] MEDS: Heparin 5,000 UNITS/ML VIAL SC SCH ×2 (08:26→20:27)
[2022-08-19] MEDS: Polyethylene Glycol 3350 17 GM Packet PO SCH (08:27)
[2022-08-19 08:51] LABS: Anion Gap 12 mmol/L (10-20); BUN (Urea Nitrogen) 46 mg/dL (9.8-20.1); Calc. Creatinine Clearance 41 mL/min (70-130); Calcium 7.8 mg/dL (7.8-10.44); Carbon Dioxide 21 mmol/L (22-29); Chloride 107 mmol/L (98-107); Estimated GFR 25; Glucose 94 mg/dL (70-105); Potassium 4.8 mmol/L (3.5-5.1); Sodium 135 mmol/L (136-145)
[2022-08-19] MEDS: Acetaminophen 325 MG TAB PO PRN (11:23)
[2022-08-19] MEDS: Ipratropium/Albuterol 3 ML NEB NEB PRN (19:56)
[2022-08-19] MEDS: Atorvastatin Calcium 40 MG TAB PO SCH (20:27)
[2022-08-20] MEDS ORDERED: Furosemide 40 MG/4 ML VIAL SLOW IVP SCH ×2 (01:00→10:45)
[2022-08-20] MEDS: cefTRIAXone\\ROCEPHIN 1 GM in Sodium Chloride 0.9% 100 ML IVPB SCH (01:22)
[2022-08-20] MEDS: Azithromycin 500 MG in Sodium Chloride 0.9% 250 ML 250 ML IVPB SCH (02:00)
[2022-08-20 05:10] LABS: #Eosinphils 0.1 thou/uL (0.0-0.7); #Monocytes 0.6 thou/uL (0.11-0.59); #Neutrophils 4.5 thou/uL (1.40-6.50); %Basophils 0.3 % (0.0-1.0); %Eosinophils 1.9 % (0.0-10.0); %Lymphocytes 9.7 % (21.0-51.0); %Monocytes 9.7 % (0.0-10.0); %Neutrophils 77.5 % (42.0-75.0); Hemoglobin 8.5 g/dL (12.0-16.0); Mean Corpuscular HGB CONC 31.1 g/dL (32.0-36.0); Mean Corpuscular Hemoglobin 29.1 pg (27.0-31.0); Mean Corpuscular Volume 93.5 fl (78.0-98.0); Mean Platelet Volume 12.5 fL (7.4-10.4); Platelet Count 214 10x3/uL (130-400); Red Blood Cell (RBC) Count 2.92 mill/uL (4.20-5.40); White Blood Cell (WBC) Count 5.8 10x3/uL (4.8-10.8)
[2022-08-20 05:33] LABS: Anion Gap 13 mmol/L (10-20); BUN (Urea Nitrogen) 51 mg/dL (9.8-20.1); Calc. Creatinine Clearance 36 mL/min (70-130); Calcium 7.9 mg/dL (7.8-10.44); Carbon Dioxide 22 mmol/L (22-29); Chloride 107 mmol/L (98-107); Estimated GFR 21; Glucose 79 mg/dL (70-105); Potassium 5.3 mmol/L (3.5-5.1); Sodium 137 mmol/L (136-145)
[2022-08-20] MEDS: Aspirin Chewable 81 MG TAB PO SCH (10:32)
[2022-08-20] MEDS: Amlodipine 10 MG TAB PO SCH (10:32)
[2022-08-20] MEDS: Carvedilol 6.25 MG TAB PO SCH ×2 (10:32→21:08)
[2022-08-20] MEDS: Polyethylene Glycol 3350 17 GM Packet PO SCH (10:33)
[2022-08-20] MEDS: guaiFENesin/DM ER PO SCH ×2 (10:33→20:58)
[2022-08-20] MEDS: Heparin 5,000 UNITS/ML VIAL SC SCH ×2 (10:33→20:58)
[2022-08-20] MEDS: HumuLIN 70/30 100 Unit/ ml Vial SC SCH ×2 (10:34→18:07)
[2022-08-20 11:10] LABS: Actual Bicarbonate (HCO3a) 22.9 mEq/L (22-28); Base Excess (BEa) -2.5 mEq/L (-2.0 to +3.0); CO2 Tension 41.9 mmHg (35.0-45.0); Calcium, Ionized (arterial) 1.15 mmol/L (1.12-1.30); Carboxyhemoglobin (COHb) 0.6 gm% (0.0-3.0); Hematocrit-ABG 27 % (36.0-47.0); Hemoglobin (Hb) 9.1 g/dL (12.0-16.0); Potassium - ABG Lab 4.88 mmol/L (3.70-5.30); pH, Arterial 7.355 (7.35-7.45)
[2022-08-20 11:12] LABS: Puncture Site RRA
[2022-08-20 17:09] LABS: Anion Gap 11 mmol/L (10-20); BUN (Urea Nitrogen) 52 mg/dL (9.8-20.1); Calc. Creatinine Clearance 37 mL/min (70-130); Calcium 8.3 mg/dL (7.8-10.44); Carbon Dioxide 24 mmol/L (22-29); Chloride 108 mmol/L (98-107); Estimated GFR 21; Glucose 61 mg/dL (70-105); Sodium 138 mmol/L (136-145)
[2022-08-20] MEDS: Atorvastatin Calcium 40 MG TAB PO SCH (20:58)
[2022-08-21] MEDS: cefTRIAXone\\ROCEPHIN 1 GM in Sodium Chloride 0.9% 100 ML IVPB SCH (01:44)
[2022-08-21] MEDS: Azithromycin 500 MG in Sodium Chloride 0.9% 250 ML 250 ML IVPB SCH (02:50)
[2022-08-21 05:35] LABS: Anion Gap 11 mmol/L (10-20); BUN (Urea Nitrogen) 50 mg/dL (9.8-20.1); Calc. Creatinine Clearance 41 mL/min (70-130); Calcium 7.8 mg/dL (7.8-10.44); Carbon Dioxide 23 mmol/L (22-29); Chloride 108 mmol/L (98-107); Estimated GFR 23; Glucose 120 mg/dL (70-105); Sodium 137 mmol/L (136-145)
[2022-08-21] MEDS: HumuLIN 70/30 100 Unit/ ml Vial SC SCH (07:30)
[2022-08-21] MEDS: Carvedilol 6.25 MG TAB PO SCH ×2 (08:32→20:42)
[2022-08-21] MEDS: Aspirin Chewable 81 MG TAB PO SCH (08:32)
[2022-08-21] MEDS: Amlodipine 10 MG TAB PO SCH (08:32)
[2022-08-21] MEDS: Polyethylene Glycol 3350 17 GM Packet PO SCH (08:33)
[2022-08-21] MEDS: Heparin 5,000 UNITS/ML VIAL SC SCH ×2 (08:33→20:43)
[2022-08-21] MEDS: guaiFENesin/DM ER PO SCH ×2 (08:38→20:43)
[2022-08-21] MEDS: Albumin 25% 25 GM/100 ML BOT IVPB SCH ×3 (11:45→23:45)
[2022-08-21 12:10] LABS: Creatinine, Urine 75.77 mg/dL (47-110)
[2022-08-21] MEDS ORDERED: Furosemide 40 MG/4 ML VIAL SLOW IVP SCH (16:00)
[2022-08-21] MEDS: Ferrous Sulfate 325 MG TAB PO SCH (17:26)
[2022-08-21] MEDS: Acetaminophen 325 MG TAB PO PRN (20:42)
[2022-08-21] MEDS: Atorvastatin Calcium 40 MG TAB PO SCH (20:43)
[2022-08-22] MEDS: cefTRIAXone\\ROCEPHIN 1 GM in Sodium Chloride 0.9% 100 ML IVPB SCH (00:52)
[2022-08-22] MEDS: Azithromycin 500 MG in Sodium Chloride 0.9% 250 ML 250 ML IVPB SCH (01:32)
[2022-08-22 05:21] LABS: #Eosinphils 0.2 thou/uL (0.0-0.7); #Monocytes 0.6 thou/uL (0.11-0.59); #Neutrophils 3.9 thou/uL (1.40-6.50); %Basophils 0.4 % (0.0-1.0); %Lymphocytes 10.8 % (21.0-51.0); %Monocytes 10.4 % (0.0-10.0); %Neutrophils 74.8 % (42.0-75.0); Hemoglobin 7.8 g/dL (12.0-16.0); Mean Corpuscular HGB CONC 31.6 g/dL (32.0-36.0); Mean Corpuscular Hemoglobin 29.5 pg (27.0-31.0); Mean Corpuscular Volume 93.6 fl (78.0-98.0); Mean Platelet Volume 12.5 fL (7.4-10.4); Platelet Count 204 10x3/uL (130-400); RBC Distribution Width 15.9 % (11.5-14.5); Red Blood Cell (RBC) Count 2.64 mill/uL (4.20-5.40); White Blood Cell (WBC) Count 5.3 10x3/uL (4.8-10.8)
[2022-08-22 05:38] LABS: Anion Gap 11 mmol/L (10-20); BUN (Urea Nitrogen) 48 mg/dL (9.8-20.1); Calc. Creatinine Clearance 40 mL/min (70-130); Calcium 8.2 mg/dL (7.8-10.44); Carbon Dioxide 24 mmol/L (22-29); Chloride 105 mmol/L (98-107); Estimated GFR 23; Glucose 245 mg/dL (70-105); Potassium 4.9 mmol/L (3.5-5.1); Sodium 135 mmol/L (136-145)
[2022-08-22] MEDS: Furosemide 40 MG/4 ML VIAL SLOW IVP SCH ×2 (06:00→14:22)
[2022-08-22] MEDS: HumaLOG 300 UNITS/3 ML VIAL SC PRN ×2 (06:01→16:51)
[2022-08-22] MEDS: Albumin 25% 25 GM/100 ML BOT IVPB SCH (06:01)
[2022-08-22] MEDS: Aspirin Chewable 81 MG TAB PO SCH (08:15)
[2022-08-22] MEDS: Amlodipine 10 MG TAB PO SCH (08:15)
[2022-08-22] MEDS: guaiFENesin/DM ER PO SCH ×2 (08:15→20:07)
[2022-08-22] MEDS: Carvedilol 6.25 MG TAB PO SCH ×2 (08:15→20:07)
[2022-08-22] MEDS: Ferrous Sulfate 325 MG TAB PO SCH ×2 (08:16→16:50)
[2022-08-22] MEDS: Heparin 5,000 UNITS/ML VIAL SC SCH ×2 (08:16→20:07)
[2022-08-22] MEDS: Polyethylene Glycol 3350 17 GM Packet PO SCH (08:18)
[2022-08-22] MEDS ORDERED: Metolazone 5 MG TAB PO SCH (18:23)
[2022-08-22] MEDS: Atorvastatin Calcium 40 MG TAB PO SCH (20:07)
[2022-08-22] MEDS ORDERED: Sodium Chloride 0.65% Nasal 44 ML BOT EA NARE PRN (20:59)
[2022-08-22] MEDS: Melatonin 3 MG TAB PO PRN (23:25)
[2022-08-23] MEDS: cefTRIAXone\\ROCEPHIN 1 GM in Sodium Chloride 0.9% 100 ML IVPB SCH (00:33)
[2022-08-23] MEDS: Azithromycin 500 MG in Sodium Chloride 0.9% 250 ML 250 ML IVPB SCH (01:26)
[2022-08-23 05:05] LABS: #Eosinphils 0.2 thou/uL (0.0-0.7); #Monocytes 0.5 thou/uL (0.11-0.59); #Neutrophils 4.5 thou/uL (1.40-6.50); %Basophils 0.3 % (0.0-1.0); %Eosinophils 3.5 % (0.0-10.0); %Monocytes 7.9 % (0.0-10.0); %Neutrophils 76.3 % (42.0-75.0); Hemoglobin 8.1 g/dL (12.0-16.0); Mean Corpuscular HGB CONC 31.6 g/dL (32.0-36.0); Mean Corpuscular Volume 91.8 fl (78.0-98.0); Mean Platelet Volume 12.6 fL (7.4-10.4); Platelet Count 221 10x3/uL (130-400); Red Blood Cell (RBC) Count 2.79 mill/uL (4.20-5.40); White Blood Cell (WBC) Count 5.9 10x3/uL (4.8-10.8)
[2022-08-23 05:30] LABS: Anion Gap 13 mmol/L (10-20); BUN (Urea Nitrogen) 47 mg/dL (9.8-20.1); Calc. Creatinine Clearance 40 mL/min (70-130); Calcium 8.5 mg/dL (7.8-10.44); Carbon Dioxide 23 mmol/L (22-29); Chloride 107 mmol/L (98-107); Estimated GFR 24; Glucose 186 mg/dL (70-105); Magnesium 2.4 mg/dL (1.6-2.6); Potassium 4.8 mmol/L (3.5-5.1); Sodium 138 mmol/L (136-145)
[2022-08-23] MEDS: HumaLOG 300 UNITS/3 ML VIAL SC PRN ×3 (05:58→17:53)
[2022-08-23] MEDS: Furosemide 40 MG/4 ML VIAL SLOW IVP SCH ×2 (05:59→14:47)
[2022-08-23] MEDS: Aspirin Chewable 81 MG TAB PO SCH (08:03)
[2022-08-23] MEDS: Carvedilol 6.25 MG TAB PO SCH ×2 (08:03→20:20)
[2022-08-23] MEDS: Polyethylene Glycol 3350 17 GM Packet PO SCH (08:03)
[2022-08-23] MEDS: Heparin 5,000 UNITS/ML VIAL SC SCH ×2 (08:04→20:20)
[2022-08-23] MEDS: Ferrous Sulfate 325 MG TAB PO SCH ×2 (08:04→16:23)
[2022-08-23] MEDS: guaiFENesin/DM ER PO SCH ×2 (08:04→20:20)
[2022-08-23] MEDS: NIFEdipine XL 60 MG TAB PO SCH (08:06)
[2022-08-23 10:22] LABS: O2 Tension (PaO2), arterial 58.9 mmHg (80.0-100.0)
[2022-08-23] MEDS ORDERED: Metolazone 2.5 MG TAB PO SCH (11:00)
[2022-08-23] MEDS: Iron, Sodium Ferric Gluconate 250 MG in Sodium Chloride 0.9% 250 ML 250 ML IVPB SCH (12:37)
[2022-08-23] MEDS: Loratadine 10 MG TAB PO PRN (16:23)
[2022-08-23] MEDS: Atorvastatin Calcium 40 MG TAB PO SCH (20:20)
[2022-08-23] MEDS: Fluticasone Propionate Nasal Spray 16 gm Bottle NASAL SCH (21:40)
[2022-08-23] MEDS: Melatonin 3 MG TAB PO PRN (21:40)
[2022-08-24] MEDS: cefTRIAXone\\ROCEPHIN 1 GM in Sodium Chloride 0.9% 100 ML IVPB SCH (01:34)
[2022-08-24] MEDS: Azithromycin 500 MG in Sodium Chloride 0.9% 250 ML 250 ML IVPB SCH (02:15)
[2022-08-24 05:27] LABS: #Eosinphils 0.3 thou/uL (0.0-0.7); #Monocytes 0.5 thou/uL (0.11-0.59); #Neutrophils 4.6 thou/uL (1.40-6.50); %Basophils 0.2 % (0.0-1.0); %Eosinophils 4.2 % (0.0-10.0); %Lymphocytes 9.4 % (21.0-51.0); %Monocytes 7.7 % (0.0-10.0); %Neutrophils 77.3 % (42.0-75.0); Hemoglobin 8.1 g/dL (12.0-16.0); Mean Corpuscular HGB CONC 30.9 g/dL (32.0-36.0); Mean Corpuscular Hemoglobin 28.6 pg (27.0-31.0); Mean Corpuscular Volume 92.6 fl (78.0-98.0); Mean Platelet Volume 11.8 fL (7.4-10.4); Platelet Count 212 10x3/uL (130-400); RBC Distribution Width 16.1 % (11.5-14.5); Red Blood Cell (RBC) Count 2.83 mill/uL (4.20-5.40)
[2022-08-24 05:53] LABS: Albumin 3.1 g/dL (3.5-5.0); Anion Gap 12 mmol/L (10-20); BUN (Urea Nitrogen) 48 mg/dL (9.8-20.1); BUN/Creatinine Ratio 19.43; Calc. Creatinine Clearance 39 mL/min (70-130); Calcium 8.2 mg/dL (7.8-10.44); Carbon Dioxide 25 mmol/L (22-29); Chloride 105 mmol/L (98-107); Estimated GFR 22; Glucose 225 mg/dL (70-105); Phosphorus 3.5 mg/dL (2.3-4.7); Potassium 4.5 mmol/L (3.5-5.1); Sodium 137 mmol/L (136-145)
[2022-08-24] MEDS: Furosemide 40 MG/4 ML VIAL SLOW IVP SCH ×2 (06:23→14:05)
[2022-08-24] MEDS ORDERED: AFRIN NASAL MIST 15 ML BOT FS PRN (10:13)
[2022-08-24] MEDS: Aspirin Chewable 81 MG TAB PO SCH (10:19)
[2022-08-24] MEDS: Carvedilol 6.25 MG TAB PO SCH ×2 (10:19→20:51)
[2022-08-24] MEDS: Metolazone 5 MG TAB PO SCH (10:19)
[2022-08-24] MEDS: guaiFENesin/DM ER PO SCH ×2 (10:20→20:51)
[2022-08-24] MEDS: Heparin 5,000 UNITS/ML VIAL SC SCH ×2 (10:20→20:55)
[2022-08-24] MEDS: NIFEdipine XL 60 MG TAB PO SCH (10:20)
[2022-08-24] MEDS: Polyethylene Glycol 3350 17 GM Packet PO SCH (10:20)
[2022-08-24] MEDS: Ferrous Sulfate 325 MG TAB PO SCH ×2 (10:23→18:54)
[2022-08-24] MEDS: Spironolactone 25 MG TAB PO SCH (10:23)
[2022-08-24] MEDS: Fluticasone Propionate Nasal Spray 16 gm Bottle NASAL SCH ×2 (10:29→20:54)
[2022-08-24] MEDS ORDERED: NIFEdipine XL 30 MG TAB PO SCH (11:00)
[2022-08-24] MEDS ORDERED: AFRIN NASAL MIST 15 ML BOT NS PRN (11:08)
[2022-08-24] MEDS: Iron, Sodium Ferric Gluconate 250 MG in Sodium Chloride 0.9% 250 ML 250 ML IVPB SCH (14:04)
[2022-08-24] MEDS ORDERED: Lidocaine 1% (PF) 30 ML VIAL ONE (17:45)
[2022-08-24 19:36] LABS: RBC Count-Automated (BF) 4168 /cu.mm; WBC/Nucleated-Auto (BF) 80 /cu.mm
[2022-08-24 19:47] LABS: Fluid, Triglycerides 14 mg/dL (Not Available); Pleural Fluid, Amylase Less than 30 U/L (Not Available); Pleural Fluid, Glucose 208 mg/dL; Pleural Fluid, LDH 75 U/L (Not Available)
[2022-08-24 19:49] LABS: Fluid, pH - Pleural Fld Greater than 7.50 (7.60 - 7.66)
[2022-08-24 19:52] LABS: BF Color Yellow; Body Fluid Source Pleural Fluid; Clarity Hazy (Clear); Tube # 2
[2022-08-24 19:54] LABS: BF Segmented Neutrophils 35 %; Cell Count Non Hematic 47 %; Eosinophils 2 %; Lymphocytes 16 %
[2022-08-24] MEDS: Atorvastatin Calcium 40 MG TAB PO SCH (20:51)
[2022-08-24] MEDS: Insulin NPH Human Isophane 100 UNITS/ML (10 ML VIAL) SC SCH (21:20)
[2022-08-25] MEDS: Furosemide 40 MG/4 ML VIAL SLOW IVP SCH ×2 (06:28→14:28)
[2022-08-25] MEDS: HumaLOG 300 UNITS/3 ML VIAL SC PRN (06:29)
[2022-08-25 07:03] LABS: Albumin 2.9 g/dL (3.5-5.0); Anion Gap 14 mmol/L (10-20); BUN (Urea Nitrogen) 51 mg/dL (9.8-20.1); BUN/Creatinine Ratio 18.96; Calc. Creatinine Clearance 36 mL/min (70-130); Calcium 8.1 mg/dL (7.8-10.44); Carbon Dioxide 23 mmol/L (22-29); Chloride 104 mmol/L (98-107); Estimated GFR 20; Glucose 198 mg/dL (70-105); Phosphorus 3.8 mg/dL (2.3-4.7); Potassium 4.5 mmol/L (3.5-5.1); Sodium 136 mmol/L (136-145)
[2022-08-25] MEDS: Aspirin Chewable 81 MG TAB PO SCH (08:16)
[2022-08-25] MEDS: Metolazone 5 MG TAB PO SCH (08:16)
[2022-08-25] MEDS: Spironolactone 25 MG TAB PO SCH (08:16)
[2022-08-25] MEDS: Ferrous Sulfate 325 MG TAB PO SCH ×2 (08:16→18:23)
[2022-08-25] MEDS: NIFEdipine XL 90 MG TAB PO SCH (08:16)
[2022-08-25] MEDS: Heparin 5,000 UNITS/ML VIAL SC SCH ×2 (08:17→20:47)
[2022-08-25] MEDS: Polyethylene Glycol 3350 17 GM Packet PO SCH (08:17)
[2022-08-25] MEDS: Multivit, Therapeutic 1 TAB PO SCH (08:17)
[2022-08-25] MEDS: guaiFENesin/DM ER PO SCH ×2 (08:17→20:41)
[2022-08-25] MEDS: Insulin NPH Human Isophane 100 UNITS/ML (10 ML VIAL) SC SCH ×2 (08:17→20:44)
[2022-08-25] MEDS: Carvedilol 6.25 MG TAB PO SCH ×2 (08:17→20:40)
[2022-08-25] MEDS: Albumin 25% 25 GM/100 ML BOT IVPB SCH ×3 (10:19→20:38)
[2022-08-25] MEDS: Iron, Sodium Ferric Gluconate 250 MG in Sodium Chloride 0.9% 250 ML 250 ML IVPB SCH (12:07)
[2022-08-25] MEDS: Fluticasone Propionate Nasal Spray 16 gm Bottle NASAL SCH ×2 (12:07→20:43)
[2022-08-25 15:16] LABS: A/G Ratio 0.9 (0.7-1.7); Albumin 2.9 g/dL (2.9-4.4); Alpha 1 0.3 g/dL (0.0-0.4); Alpha 2 0.8 g/dL (0.4-1.0); Beta 0.8 g/dL (0.7-1.3); Gamma 1.3 g/dL (0.4-1.8); Globulin, Total 3.2 g/dL (2.2-3.9); M-Spike Not Observed g/dL (Not Observed)
[2022-08-25] MEDS: Atorvastatin Calcium 40 MG TAB PO SCH (20:39)
[2022-08-25] MEDS: Melatonin 3 MG TAB PO PRN (20:41)
[2022-08-25] MEDS: Acetaminophen 325 MG TAB PO PRN (20:41)
[2022-08-26] MEDS: Furosemide 40 MG/4 ML VIAL SLOW IVP SCH (04:33)
[2022-08-26 05:30] LABS: Albumin 3.5 g/dL (3.5-5.0); Anion Gap 11 mmol/L (10-20); BUN (Urea Nitrogen) 54 mg/dL (9.8-20.1); BUN/Creatinine Ratio 17.94; Calc. Creatinine Clearance 33 mL/min (70-130); Calcium 8.3 mg/dL (7.8-10.44); Carbon Dioxide 25 mmol/L (22-29); Chloride 106 mmol/L (98-107); Estimated GFR 18; Glucose 133 mg/dL (70-105); Phosphorus 4.1 mg/dL (2.3-4.7); Potassium 4.1 mmol/L (3.5-5.1); Sodium 138 mmol/L (136-145)
[2022-08-26] MEDS: Multivit, Therapeutic 1 TAB PO SCH (08:04)
[2022-08-26] MEDS: Heparin 5,000 UNITS/ML VIAL SC SCH ×2 (08:04→20:27)
[2022-08-26] MEDS: Aspirin Chewable 81 MG TAB PO SCH (08:04)
[2022-08-26] MEDS: Carvedilol 6.25 MG TAB PO SCH ×2 (08:04→20:24)
[2022-08-26] MEDS: Fluticasone Propionate Nasal Spray 16 gm Bottle NASAL SCH ×2 (08:04→20:25)
[2022-08-26] MEDS: guaiFENesin/DM ER PO SCH ×2 (08:04→20:24)
[2022-08-26] MEDS: Ferrous Sulfate 325 MG TAB PO SCH ×2 (08:04→16:42)
[2022-08-26] MEDS: Insulin NPH Human Isophane 100 UNITS/ML (10 ML VIAL) SC SCH ×2 (08:06→20:26)
[2022-08-26] MEDS: NIFEdipine XL 90 MG TAB PO SCH (08:08)
[2022-08-26] MEDS: Polyethylene Glycol 3350 17 GM Packet PO SCH (08:08)
[2022-08-26] MEDS ORDERED: Empagliflozin 10 MG TAB PO SCH (12:00)
[2022-08-26] MEDS: Iron, Sodium Ferric Gluconate 250 MG in Sodium Chloride 0.9% 250 ML 250 ML IVPB SCH (12:00)
[2022-08-26 16:15] LABS: Albumin, PEP 24hr Ur 71.5 % (NOT ESTAB.); Alpha-1-Globulin, PEP 24h Ur 3.3 % (NOT ESTAB.); Alpha-2-Globulin, PEP 24h Ur 4.4 % (NOT ESTAB.); Beta Globulin, PEP 24h Ur 3.3 % (NOT ESTAB.); Gamma Globulin, PEP 24h Ur 17.5 % (NOT ESTAB.); M-Spike,% PEP 24hr Ur Not Observed % (Not Observed); Protein, PEP 24hr calculated 5149 mg/24 hr (30-150); Protein, Urine 307.4 mg/dL (Not Estab.)
[2022-08-26] MEDS: Atorvastatin Calcium 40 MG TAB PO SCH (20:23)
[2022-08-26] MEDS: Loratadine 10 MG TAB PO PRN (20:23)
[2022-08-26] MEDS: Acetaminophen 325 MG TAB PO PRN (20:25)
[2022-08-27] MEDS: Acetaminophen 325 MG TAB PO PRN ×2 (01:24→19:25)
[2022-08-27 07:29] LABS: #Eosinphils 0.3 thou/uL (0.0-0.7); #Monocytes 0.5 thou/uL (0.11-0.59); #Neutrophils 5.5 thou/uL (1.40-6.50); %Basophils 0.3 % (0.0-1.0); %Eosinophils 3.6 % (0.0-10.0); %Lymphocytes 9.8 % (21.0-51.0); %Monocytes 6.8 % (0.0-10.0); %Neutrophils 78.9 % (42.0-75.0); Mean Corpuscular HGB CONC 31.3 g/dL (32.0-36.0); Mean Corpuscular Hemoglobin 29.6 pg (27.0-31.0); Mean Corpuscular Volume 94.8 fl (78.0-98.0); Mean Platelet Volume 12.3 fL (7.4-10.4); Platelet Count 226 10x3/uL (130-400); RBC Distribution Width 16.9 % (11.5-14.5); White Blood Cell (WBC) Count 6.9 10x3/uL (4.8-10.8)
[2022-08-27 07:59] LABS: Albumin 3.4 g/dL (3.5-5.0); Anion Gap 12 mmol/L (10-20); BUN (Urea Nitrogen) 58 mg/dL (9.8-20.1); BUN/Creatinine Ratio 18.71; Calc. Creatinine Clearance 32 mL/min (70-130); Calcium 8.3 mg/dL (7.8-10.44); Carbon Dioxide 25 mmol/L (22-29); Chloride 106 mmol/L (98-107); Estimated GFR 17; Glucose 98 mg/dL (70-105); Phosphorus 4.7 mg/dL (2.3-4.7); Potassium 4.6 mmol/L (3.5-5.1); Sodium 138 mmol/L (136-145)
[2022-08-27] MEDS: Heparin 5,000 UNITS/ML VIAL SC SCH ×2 (08:34→19:28)
[2022-08-27] MEDS: Insulin NPH Human Isophane 100 UNITS/ML (10 ML VIAL) SC SCH ×3 (08:34→19:51)
[2022-08-27] MEDS: Polyethylene Glycol 3350 17 GM Packet PO SCH (08:34)
[2022-08-27] MEDS: Carvedilol 6.25 MG TAB PO SCH ×2 (08:35→19:26)
[2022-08-27] MEDS: Aspirin Chewable 81 MG TAB PO SCH (08:35)
[2022-08-27] MEDS: NIFEdipine XL 90 MG TAB PO SCH (08:35)
[2022-08-27] MEDS: Ferrous Sulfate 325 MG TAB PO SCH ×2 (08:35→16:53)
[2022-08-27] MEDS: Multivit, Therapeutic 1 TAB PO SCH (08:35)
[2022-08-27] MEDS: guaiFENesin/DM ER PO SCH ×2 (08:35→19:26)
[2022-08-27] MEDS: Fluticasone Propionate Nasal Spray 16 gm Bottle NASAL SCH ×2 (08:36→19:27)
[2022-08-27] MEDS: Empagliflozin 10 MG TAB PO SCH (10:27)
[2022-08-27] MEDS ORDERED: Metolazone 2.5 MG TAB PO SCH (12:45)
[2022-08-27] MEDS ORDERED: Furosemide 40 MG/4 ML VIAL SLOW IVP SCH (12:45)
[2022-08-27] MEDS ORDERED: Spironolactone 25 MG TAB PO SCH (12:45)
[2022-08-27] MEDS: Melatonin 3 MG TAB PO PRN (19:27)
[2022-08-27] MEDS: Atorvastatin Calcium 40 MG TAB PO SCH (19:27)
[2022-08-28 04:42] LABS: #Eosinphils 0.2 thou/uL (0.0-0.7); #Monocytes 0.4 thou/uL (0.11-0.59); #Neutrophils 5.1 thou/uL (1.40-6.50); %Basophils 0.3 % (0.0-1.0); %Eosinophils 3.1 % (0.0-10.0); %Lymphocytes 8.5 % (21.0-51.0); %Monocytes 6.3 % (0.0-10.0); %Neutrophils 81.2 % (42.0-75.0); Hemoglobin 7.7 g/dL (12.0-16.0); Mean Corpuscular HGB CONC 30.2 g/dL (32.0-36.0); Mean Corpuscular Hemoglobin 29.1 pg (27.0-31.0); Mean Corpuscular Volume 96.2 fl (78.0-98.0); Mean Platelet Volume 12.3 fL (7.4-10.4); Platelet Count 208 10x3/uL (130-400); RBC Distribution Width 16.9 % (11.5-14.5); Red Blood Cell (RBC) Count 2.65 mill/uL (4.20-5.40); White Blood Cell (WBC) Count 6.2 10x3/uL (4.8-10.8)
[2022-08-28 05:05] LABS: Albumin 3.4 g/dL (3.5-5.0); Anion Gap 12 mmol/L (10-20); BUN (Urea Nitrogen) 60 mg/dL (9.8-20.1); BUN/Creatinine Ratio 19.35; Calc. Creatinine Clearance 32 mL/min (70-130); Calcium 8.4 mg/dL (7.8-10.44); Carbon Dioxide 25 mmol/L (22-29); Chloride 105 mmol/L (98-107); Estimated GFR 17; Glucose 142 mg/dL (70-105); Phosphorus 4.5 mg/dL (2.3-4.7); Potassium 4.9 mmol/L (3.5-5.1); Sodium 137 mmol/L (136-145)
[2022-08-28] MEDS: Acetaminophen 325 MG TAB PO PRN ×2 (08:53→16:14)
[2022-08-28] MEDS: Carvedilol 6.25 MG TAB PO SCH ×2 (08:54→19:44)
[2022-08-28] MEDS: Aspirin Chewable 81 MG TAB PO SCH (08:58)
[2022-08-28] MEDS: Furosemide 40 MG/4 ML VIAL SLOW IVP SCH (08:58)
[2022-08-28] MEDS: guaiFENesin/DM ER PO SCH ×2 (08:58→19:44)
[2022-08-28] MEDS: Heparin 5,000 UNITS/ML VIAL SC SCH ×2 (08:58→19:46)
[2022-08-28] MEDS: Metolazone 5 MG TAB PO SCH (08:59)
[2022-08-28] MEDS: Spironolactone 25 MG TAB PO SCH (08:59)
[2022-08-28] MEDS: Insulin NPH Human Isophane 100 UNITS/ML (10 ML VIAL) SC SCH ×2 (08:59→19:56)
[2022-08-28] MEDS: Empagliflozin 10 MG TAB PO SCH (08:59)
[2022-08-28] MEDS: Ferrous Sulfate 325 MG TAB PO SCH ×2 (08:59→16:06)
[2022-08-28] MEDS: Multivit, Therapeutic 1 TAB PO SCH (08:59)
[2022-08-28] MEDS: NIFEdipine XL 90 MG TAB PO SCH (08:59)
[2022-08-28] MEDS: Polyethylene Glycol 3350 17 GM Packet PO SCH (09:12)
[2022-08-28] MEDS: Fluticasone Propionate Nasal Spray 16 gm Bottle NASAL SCH ×2 (09:12→19:45)
[2022-08-28] MEDS: Melatonin 3 MG TAB PO PRN (19:44)
[2022-08-28] MEDS: Atorvastatin Calcium 40 MG TAB PO SCH (19:44)
[2022-08-29] MEDS: Acetaminophen 325 MG TAB PO PRN ×2 (04:59→16:19)
[2022-08-29] MEDS: Ferrous Sulfate 325 MG TAB PO SCH ×2 (09:31→16:19)
[2022-08-29] MEDS: NIFEdipine XL 90 MG TAB PO SCH (09:31)
[2022-08-29] MEDS: Aspirin Chewable 81 MG TAB PO SCH (09:31)
[2022-08-29] MEDS: Metolazone 5 MG TAB PO SCH (09:31)
[2022-08-29] MEDS: Multivit, Therapeutic 1 TAB PO SCH (09:31)
[2022-08-29] MEDS: Carvedilol 6.25 MG TAB PO SCH ×2 (09:31→19:59)
[2022-08-29] MEDS: Spironolactone 25 MG TAB PO SCH (09:32)
[2022-08-29] MEDS: Empagliflozin 10 MG TAB PO SCH (09:32)
[2022-08-29] MEDS: Polyethylene Glycol 3350 17 GM Packet PO SCH (09:32)
[2022-08-29] MEDS: Heparin 5,000 UNITS/ML VIAL SC SCH ×2 (09:32→20:00)
[2022-08-29] MEDS: Fluticasone Propionate Nasal Spray 16 gm Bottle NASAL SCH ×2 (09:32→20:00)
[2022-08-29] MEDS: Furosemide 40 MG/4 ML VIAL SLOW IVP SCH (09:32)
[2022-08-29] MEDS: guaiFENesin/DM ER PO SCH ×2 (09:32→19:59)
[2022-08-29] MEDS: Insulin NPH Human Isophane 100 UNITS/ML (10 ML VIAL) SC SCH ×2 (09:33→20:07)
[2022-08-29] MEDS: Atorvastatin Calcium 40 MG TAB PO SCH (19:59)
[2022-08-29] MEDS: Melatonin 3 MG TAB PO PRN (19:59)
[2022-08-30 05:02] LABS: #Eosinphils 0.2 thou/uL (0.0-0.7); #Monocytes 0.5 thou/uL (0.11-0.59); #Neutrophils 4.6 thou/uL (1.40-6.50); %Basophils 0.3 % (0.0-1.0); %Monocytes 8.1 % (0.0-10.0); %Neutrophils 76.3 % (42.0-75.0); Hemoglobin 7.9 g/dL (12.0-16.0); Mean Corpuscular HGB CONC 31.2 g/dL (32.0-36.0); Mean Corpuscular Hemoglobin 28.7 pg (27.0-31.0); Mean Platelet Volume 12.3 fL (7.4-10.4); Platelet Count 225 10x3/uL (130-400); RBC Distribution Width 17.6 % (11.5-14.5); Red Blood Cell (RBC) Count 2.75 mill/uL (4.20-5.40)
[2022-08-30 05:24] LABS: Anion Gap 15 mmol/L (10-20); BUN (Urea Nitrogen) 60 mg/dL (9.8-20.1); Calc. Creatinine Clearance 31 mL/min (70-130); Calcium 8.4 mg/dL (7.8-10.44); Carbon Dioxide 23 mmol/L (22-29); Chloride 106 mmol/L (98-107); Estimated GFR 19; Glucose 131 mg/dL (70-105); Potassium 4.5 mmol/L (3.5-5.1); Sodium 139 mmol/L (136-145)
[2022-08-30 05:40] VITALS: BMI 38.4
[2022-08-30] MEDS: Carvedilol 6.25 MG TAB PO SCH (09:58)
[2022-08-30] MEDS: guaiFENesin/DM ER PO SCH (10:00)
[2022-08-30] MEDS: NIFEdipine XL 90 MG TAB PO SCH (10:00)
[2022-08-30] MEDS: Empagliflozin 10 MG TAB PO SCH (10:00)
[2022-08-30] MEDS: Multivit, Therapeutic 1 TAB PO SCH (10:01)
[2022-08-30] MEDS: Metolazone 5 MG TAB PO SCH (10:01)
[2022-08-30] MEDS: Spironolactone 25 MG TAB PO SCH (10:02)
[2022-08-30] MEDS: Ferrous Sulfate 325 MG TAB PO SCH (10:02)
[2022-08-30] MEDS: Aspirin Chewable 81 MG TAB PO SCH (10:02)
[2022-08-30] MEDS: Furosemide 40 MG/4 ML VIAL SLOW IVP SCH (10:03)
[2022-08-30] MEDS: Polyethylene Glycol 3350 17 GM Packet PO SCH (10:03)
[2022-08-30] MEDS: Heparin 5,000 UNITS/ML VIAL SC SCH (10:03)
[2022-08-30] MEDS: Fluticasone Propionate Nasal Spray 16 gm Bottle NASAL SCH (10:05)
[2022-08-30] MEDS: Insulin NPH Human Isophane 100 UNITS/ML (10 ML VIAL) SC SCH (12:34)
[2022-08-30 14:13] VITALS: BP 133/66; TEMP 97.8
[2022-08-31] MEDS ORDERED: Metolazone 2.5 MG TAB PO SCH (08:30)
[2022-09-05] MEDS ORDERED: EPOETIN ALFA-EPBX (ESRD) 10,000 UNITS/ML VIAL SC SCH (09:00)
== END 2022-08-30 13:53 | disposition home or self-care (01) | DRG 280 ==
LOC: ERS 20:13 → 2SW 22:37 → T4-A 08-24 20:19
PROVIDERS: ADMIT Student in an Organized Health Care Education/Training Program; ATTEND Internal Medicine
PROC: 0W993ZZ Drainage of Right Pleural Cavity, Percutaneous Approach (ICD-10-PCS; principal; 2022-08-24)
DX: I13.0 Hypertensive heart and chronic kidney disease with heart failure and stage 1 through stage 4 chronic kidney disease, or unspecified chronic kidney disease (principal); I50.33 Acute on chronic diastolic (congestive) heart failure; I21.A1 Myocardial infarction type 2; J96.01 Acute respiratory failure with hypoxia; J18.9 Pneumonia, unspecified organism; N17.9 Acute kidney failure, unspecified; N18.30 Chronic kidney disease, stage 3 unspecified; E11.22 Type 2 diabetes mellitus with diabetic chronic kidney disease; Z68.34 Body mass index [BMI] 34.0-34.9, adult; R80.9 Proteinuria, unspecified; H54.7 Unspecified visual loss; D63.1 Anemia in chronic kidney disease; E66.01 Morbid (severe) obesity due to excess calories; K59.00 Constipation, unspecified; D50.9 Iron deficiency anemia, unspecified; G47.00 Insomnia, unspecified; E88.09 Other disorders of plasma-protein metabolism, not elsewhere classified; Z79.899 Other long term (current) drug therapy; Z79.4 Long term (current) use of insulin
CPT/HCPCS: 36415; 36416; 36600; 71045; 71046; 71250; 76770; 80048; 80053; 80069; 81001; 82040; 82150; 82553; 82570; 82607; 82728; 82805; 82945; 83036; 83540; 83550; 83605; 83615; 83735; 83880; 83986; 84145; 84155; 84156; 84157; 84165; 84166; 84300; 84478; 84484; 84540; 85025; 85027; 85060; 87040; 87070; 87116; 87205; 87206; 88112; 88305; 89051; 93005; 93306; 94640; 94760; 97139; J0456; J0696; J1644; J1815; J1940; J2405; J2916; J3490; J7050; J7620; P9047

== ENCOUNTER 2023-02-06 22:01 | Inpatient (IN) | payer SELFPAY ==
[2023-02-06 22:44] LABS: #Eosinphils 0.3 thou/uL (0.0-0.7); #Monocytes 0.9 thou/uL (0.11-0.59); #Neutrophils 9.5 thou/uL (1.40-6.50); %Basophils 0.3 % (0.0-1.0); %Eosinophils 2.7 % (0.0-10.0); %Lymphocytes 9.1 % (21.0-51.0); %Monocytes 7.8 % (0.0-10.0); %Neutrophils 79.8 % (42.0-75.0); Hematocrit 33.7 % (36.0-47.0); Hemoglobin 10.7 g/dL (12.0-16.0); Mean Corpuscular HGB CONC 31.8 g/dL (32.0-36.0); Mean Corpuscular Hemoglobin 30.8 pg (27.0-31.0); Mean Corpuscular Volume 97.1 fl (78.0-98.0); Mean Platelet Volume 12.3 fL (7.4-10.4); Platelet Count 331 10x3/uL (130-400); RBC Distribution Width 14.7 % (11.5-14.5); Red Blood Cell (RBC) Count 3.47 mill/uL (4.20-5.40); White Blood Cell (WBC) Count 11.9 10x3/uL (4.8-10.8)
[2023-02-06 23:23] LABS: ALT (SGPT) 14 U/L (8-55); AST (SGOT) 19 U/L (5-34); Albumin 3.1 g/dL (3.5-5.0); Alkaline Phosphatase 380 U/L (40-110); Anion Gap 12 mmol/L (10-20); BUN (Urea Nitrogen) 31 mg/dL (9.8-20.1); Bilirubin, Total 0.6 mg/dL (0.2-1.2); Calc. Creatinine Clearance 0 mL/min (70-130); Calcium 8.1 mg/dL (7.8-10.44); Carbon Dioxide 23 mmol/L (22-29); Chloride 111 mmol/L (98-107); Estimated GFR 24; Globulin 3.4 g/dL (2.4-3.5); Glucose 100 mg/dL (70-105); Potassium 4.8 mmol/L (3.5-5.1); Protein, Total 6.5 g/dL (6.0-8.3); Sodium 141 mmol/L (136-145)
[2023-02-06 23:28] LABS: Troponin I 0.179 ng/mL (< 0.028)
[2023-02-06 23:56] LABS: INR-International Normal Ratio 1.1; PTT 49.1 sec (22.9-36.1)
[2023-02-07] MEDS ORDERED: Acetaminophen 650 MG Suppository PR PRN (00:06)
[2023-02-07] MEDS ORDERED: Acetaminophen 325 MG TAB PO PRN (00:06)
[2023-02-07] MEDS ORDERED: Ondansetron ODT 4 MG TAB PO PRN (00:06)
[2023-02-07] MEDS ORDERED: Ondansetron PF 4 MG/2 ML Vial IVP PRN (00:06)
[2023-02-07] MEDS ORDERED: Furosemide 40 MG/4 ML VIAL ONE (01:00)
[2023-02-07] MEDS ORDERED: Ipratropium/Albuterol 3 ML NEB NEB PRN (01:08)
[2023-02-07] MEDS ORDERED: Ipratropium/Albuterol 3 ML NEB NEB SCH (01:15)
[2023-02-07] MEDS ORDERED: Furosemide 40 MG/4 ML VIAL SLOW IVP SCH ×3 (01:15→14:00)
[2023-02-07 01:55] LABS: Troponin I 0.162 ng/mL (< 0.028)
[2023-02-07 05:48] LABS: #Eosinphils 0.3 thou/uL (0.0-0.7); #Monocytes 0.8 thou/uL (0.11-0.59); #Neutrophils 7.8 thou/uL (1.40-6.50); %Basophils 0.4 % (0.0-1.0); %Lymphocytes 9.9 % (21.0-51.0); %Monocytes 7.9 % (0.0-10.0); %Neutrophils 78.4 % (42.0-75.0); Hematocrit 33.7 % (36.0-47.0); Hemoglobin 10.7 g/dL (12.0-16.0); Mean Corpuscular HGB CONC 31.8 g/dL (32.0-36.0); Mean Corpuscular Volume 97.7 fl (78.0-98.0); Mean Platelet Volume 12.4 fL (7.4-10.4); Platelet Count 287 10x3/uL (130-400); RBC Distribution Width 14.8 % (11.5-14.5); Red Blood Cell (RBC) Count 3.45 mill/uL (4.20-5.40)
[2023-02-07 06:14] LABS: Troponin I 0.161 ng/mL (< 0.028)
[2023-02-07 06:23] LABS: Anion Gap 12 mmol/L (10-20); BUN (Urea Nitrogen) 31 mg/dL (9.8-20.1); Calc. Creatinine Clearance 47 mL/min (70-130); Calcium 8.2 mg/dL (7.8-10.44); Carbon Dioxide 23 mmol/L (22-29); Chloride 110 mmol/L (98-107); Estimated GFR 25; Glucose 65 mg/dL (70-105); Potassium 4.9 mmol/L (3.5-5.1); Sodium 140 mmol/L (136-145)
[2023-02-07 08:12] LABS: Bilirubin Negative (Negative); Blood, Urine Negative (Negative); CAUTI Indications for Culture Dysuria,urgency,freq; Clarity Turbid (Clear); Glucose, Urine (Dipstick) 70 mg/dL (Negative); Ketone, Urine Negative (Negative); Leukocyte 75 Leu/uL (Negative); Nitrite Negative (Negative); Protein, Urine (Dipstick) 300 mg/dL (Neg-Trace); RBC/HPF 0-3 HPF (0-3); Specific Gravity, Urine 1.014 (1.002-1.036); Squamous Epithelial 0-3 HPF (0-3); Urobilinogen Normal mg/dL (Less than 2)
[2023-02-07 08:14] LABS: Bacteria/HPF 1+ HPF (None Seen)
[2023-02-07 08:15] LABS: Urine Culture Reflex No No
[2023-02-07] MEDS: Aspirin Chewable 81 MG TAB PO SCH (08:54)
[2023-02-07] MEDS: Atorvastatin Calcium 40 MG TAB PO SCH (08:54)
[2023-02-07] MEDS: Ferrous Sulfate 325 MG TAB PO SCH (08:55)
[2023-02-07] MEDS: Famotidine 20 MG TAB PO SCH (08:55)
[2023-02-07] MEDS: Heparin 5,000 UNITS/ML VIAL SC SCH ×3 (08:56→22:07)
[2023-02-07] MEDS ORDERED: Empagliflozin 25 MG TAB PO SCH (09:00)
[2023-02-07] MEDS ORDERED: Non-Formulary Item 1 EACH (Carvedilol [Carvedilol] 12.5 MG Tablet) PO SCH (09:21)
[2023-02-07] MEDS: Amlodipine 10 MG TAB PO SCH (10:58)
[2023-02-07] MEDS: Carvedilol 25 MG TAB PO SCH ×2 (10:58→22:06)
[2023-02-07] MEDS ORDERED: Metolazone 2.5 MG TAB PO SCH (12:00)
[2023-02-07] MEDS ORDERED: Glucagon 1 MG/ML KIT IM PRN (13:38)
[2023-02-07] MEDS ORDERED: Dextrose 5% in Water 1,000 ML IV PRN (13:38)
[2023-02-07] MEDS ORDERED: HumaLOG 300 UNITS/3 ML VIAL SC PRN (13:38)
[2023-02-07] MEDS ORDERED: Dextrose 50% Abboject 50 ML SYRINGE SLOW IVP PRN (13:38)
[2023-02-07] MEDS: hydrALAZINE 25 MG TAB PO SCH ×2 (14:13→22:06)
[2023-02-07] MEDS: Furosemide 40 MG/4 ML VIAL SLOW IVP SCH ×2 (14:13→22:07)
[2023-02-07 15:20] LABS: Creatinine, Urine 90.52 mg/dL (47-110)
[2023-02-07] MEDS ORDERED: Benzonatate 100 MG CAP PO SCH (17:30)
[2023-02-07] MEDS ORDERED: Insulin Glargine 30 UNITS/0.3 ML VIAL SC SCH (21:00)
[2023-02-07] MEDS: Benzonatate 100 MG CAP PO SCH (22:06)
[2023-02-07] MEDS: Insulin Glargine 30 UNITS/0.3 ML VIAL SC SCH (22:08)
[2023-02-08] MEDS: Furosemide 40 MG/4 ML VIAL SLOW IVP SCH ×3 (06:22→22:53)
[2023-02-08 06:24] VITALS: BMI 45.3
[2023-02-08] MEDS ORDERED: Albumin 25% 25 GM/100 ML BOT IVPB SCH (08:15)
[2023-02-08] MEDS ORDERED: Metolazone 5 MG TAB PO SCH (08:30)
[2023-02-08] MEDS: hydrALAZINE 25 MG TAB PO SCH ×3 (08:46→20:24)
[2023-02-08] MEDS: Aspirin Chewable 81 MG TAB PO SCH (08:47)
[2023-02-08] MEDS: Famotidine 20 MG TAB PO SCH (08:47)
[2023-02-08] MEDS: Amlodipine 10 MG TAB PO SCH (08:47)
[2023-02-08] MEDS: Spironolactone 25 MG TAB PO SCH (08:47)
[2023-02-08] MEDS: Carvedilol 25 MG TAB PO SCH ×2 (08:47→20:24)
[2023-02-08] MEDS: Benzonatate 100 MG CAP PO SCH ×3 (08:47→20:24)
[2023-02-08] MEDS: Ferrous Sulfate 325 MG TAB PO SCH (08:48)
[2023-02-08] MEDS: Multivit, Therapeutic 1 TAB PO SCH (08:48)
[2023-02-08] MEDS: Atorvastatin Calcium 40 MG TAB PO SCH (08:48)
[2023-02-08] MEDS: Heparin 5,000 UNITS/ML VIAL SC SCH ×3 (08:49→20:23)
[2023-02-08] MEDS: Insulin Glargine 30 UNITS/0.3 ML VIAL SC SCH ×2 (08:49→20:23)
[2023-02-08] MEDS ORDERED: Insulin Glargine 30 UNITS/0.3 ML VIAL SC SCH (09:00)
[2023-02-08 09:11] LABS: Albumin 2.7 g/dL (3.5-5.0); Anion Gap 12 mmol/L (10-20); BUN (Urea Nitrogen) 32 mg/dL (9.8-20.1); BUN/Creatinine Ratio 13.11; Calc. Creatinine Clearance 43 mL/min (70-130); Calcium 7.9 mg/dL (7.8-10.44); Carbon Dioxide 23 mmol/L (22-29); Chloride 112 mmol/L (98-107); Estimated GFR 23; Glucose 97 mg/dL (70-105); Phosphorus 4.7 mg/dL (2.3-4.7); Potassium 5.1 mmol/L (3.5-5.1); Sodium 142 mmol/L (136-145)
[2023-02-08] MEDS ORDERED: guaiFENesin ER 600 MG TAB PO SCH (15:15)
[2023-02-08] MEDS: Albumin 25% 25 GM/100 ML BOT IVPB SCH ×2 (18:33→22:53)
[2023-02-08] MEDS: guaiFENesin ER 600 MG TAB PO SCH (20:23)
[2023-02-09 05:14] LABS: Albumin 3.4 g/dL (3.5-5.0); Anion Gap 12 mmol/L (10-20); BUN (Urea Nitrogen) 38 mg/dL (9.8-20.1); BUN/Creatinine Ratio 12.93; Calc. Creatinine Clearance 35 mL/min (70-130); Carbon Dioxide 24 mmol/L (22-29); Chloride 111 mmol/L (98-107); Estimated GFR 18; Glucose 56 mg/dL (70-105); Phosphorus 4.7 mg/dL (2.3-4.7); Potassium 4.9 mmol/L (3.5-5.1); Sodium 142 mmol/L (136-145)
[2023-02-09] MEDS: Albumin 25% 25 GM/100 ML BOT IVPB SCH ×2 (05:17→11:05)
[2023-02-09] MEDS: Furosemide 40 MG/4 ML VIAL SLOW IVP SCH (05:17)
[2023-02-09] MEDS ORDERED: Heparin 10,000 UNITS/ 10 ML VIAL ONE (08:50)
[2023-02-09] MEDS: Heparin 5,000 UNITS/ML VIAL SC SCH ×3 (09:23→21:36)
[2023-02-09] MEDS: Ferrous Sulfate 325 MG TAB PO SCH (09:23)
[2023-02-09] MEDS: Spironolactone 25 MG TAB PO SCH (09:24)
[2023-02-09] MEDS: Atorvastatin Calcium 40 MG TAB PO SCH (09:24)
[2023-02-09] MEDS: Amlodipine 10 MG TAB PO SCH (09:24)
[2023-02-09] MEDS: guaiFENesin ER 600 MG TAB PO SCH ×2 (09:24→21:36)
[2023-02-09] MEDS: Carvedilol 25 MG TAB PO SCH ×2 (09:24→21:34)
[2023-02-09] MEDS: Multivit, Therapeutic 1 TAB PO SCH (09:24)
[2023-02-09] MEDS: Aspirin Chewable 81 MG TAB PO SCH (09:24)
[2023-02-09] MEDS: hydrALAZINE 25 MG TAB PO SCH ×3 (09:24→21:35)
[2023-02-09] MEDS: Benzonatate 100 MG CAP PO SCH ×3 (09:24→21:34)
[2023-02-09] MEDS: Famotidine 20 MG TAB PO SCH (09:25)
[2023-02-09] MEDS: Insulin Glargine 30 UNITS/0.3 ML VIAL SC SCH (09:25)
[2023-02-09] MEDS ORDERED: Spironolactone 100 MG TAB PO SCH (09:30)
[2023-02-09] MEDS ORDERED: Metolazone 5 MG TAB PO SCH (09:30)
[2023-02-09] MEDS ORDERED: Spironolactone 25 MG TAB PO SCH (13:15)
[2023-02-09] MEDS: Furosemide 100 MG/10 ML VIAL SLOW IVP SCH ×2 (13:41→21:36)
[2023-02-09] MEDS ORDERED: Ventilator Sedation Protocol 1 EACH FS SCH (18:15)
[2023-02-09] MEDS ORDERED: Fentanyl BOLUS 250 ML IVPB PRN (18:30)
[2023-02-09] MEDS ORDERED: Morphine 2 MG/ML VIAL SLOW IVP PRN (18:30)
[2023-02-09] MEDS ORDERED: Fentanyl CADD 100 ML IV SCH (18:30)
[2023-02-09] MEDS ORDERED: DISCONTINUE PREVIOUS NARCOTIC PAIN MEDICATIONS AND BENZODIAZEPINES FS SCH (18:30)
[2023-02-09] MEDS ORDERED: Propofol 1,000 MG/100 ML VIAL IV PRN (18:30)
[2023-02-09] MEDS ORDERED: Propofol BOLUS 1,000 MG/100 ML VIAL IV PRN (18:30)
[2023-02-09] MEDS ORDERED: Lorazepam 2 MG/ML VIAL SLOW IVP PRN (18:30)
[2023-02-09 18:34] LABS: Actual Bicarbonate (HCO3a) 24.7 mEq/L (22-28); Base Excess (BEa) -2.7 mEq/L (-2.0 to +3.0); CO2 Tension 56.2 mmHg (35.0-45.0); Carboxyhemoglobin (COHb) 0.1 gm% (0.0-3.0); Hematocrit-ABG 29 % (36.0-47.0); O2 Tension (PaO2), arterial 63.2 mmHg (80.0-100.0); Potassium - ABG Lab 4.85 mmol/L (3.70-5.30); pH, Arterial 7.261 (7.35-7.45)
[2023-02-09 18:38] LABS: Puncture Site LRA
[2023-02-09 18:55] LABS: Hematocrit 28.4 % (36.0-47.0); Hemoglobin 8.9 g/dL (12.0-16.0); Manual Diff?? YES; Mean Corpuscular HGB CONC 31.3 g/dL (32.0-36.0); Mean Corpuscular Hemoglobin 31.8 pg (27.0-31.0); Mean Corpuscular Volume 101.4 fl (78.0-98.0); Mean Platelet Volume 12.5 fL (7.4-10.4); Platelet Count 201 10x3/uL (130-400); RBC Distribution Width 14.6 % (11.5-14.5); White Blood Cell (WBC) Count 21.7 10x3/uL (4.8-10.8)
[2023-02-09 18:57] LABS: Delete Auto Diff?? YES
[2023-02-09 19:17] LABS: Lactic Acid 1.4 mmol/L (0.5-2.2)
[2023-02-09 19:22] LABS: ALT (SGPT) 9 U/L (8-55); AST (SGOT) 15 U/L (5-34); Albumin 3.2 g/dL (3.5-5.0); Alkaline Phosphatase 178 U/L (40-110); Anion Gap 12 mmol/L (10-20); BUN (Urea Nitrogen) 40 mg/dL (9.8-20.1); Bilirubin, Total 0.7 mg/dL (0.2-1.2); Calc. Creatinine Clearance 34 mL/min (70-130); Calcium 8.2 mg/dL (7.8-10.44); Carbon Dioxide 25 mmol/L (22-29); Chloride 109 mmol/L (98-107); Estimated GFR 17; Globulin 2.4 g/dL (2.4-3.5); Glucose 118 mg/dL (70-105); Potassium 4.9 mmol/L (3.5-5.1); Protein, Total 5.6 g/dL (6.0-8.3); Sodium 141 mmol/L (136-145)
[2023-02-09 19:26] LABS: Band 36 % (5-11); Burr Cells SLIGHT = 2-5 cells HPF (0-1); CellaVision Operator ID LAB.MJL; HBSAB Concentration Less than 8.00 mIU/mL; HBSAg Index 0.19 S/CO (0-0.99); Hep B Core Total Ab Non-Reactive (NonReactive); Hep B Core Total Index 0.15 S/CO (0-0.79); Hep B Surf AB Non-Reactive (NonReactive); Hep B Surf Ag Non-Reactive S/CO (NonReactive); Hep C IgG Ab Non-Reactive S/CO (NonReactive); Hep C Index 0.07 S/CO (0-0.79); Large Platelets 2.9 % (0-5); Lymphocytes 3 % (21-51); Macrocytosis SLIGHT = 6-15 cells HPF (0-5); Monocytes 10 % (0-10); Neutrophil 52 % (42-75); Ovalocytes SLIGHT = 2-5 cells HPF (0-1); Platelet Adequacy Comment Platelets Normal; Poikilocytosis SLIGHT = 6-15 cells HPF (0-5); Polychromasia SLIGHT = 2-3 cells HPF (0-2); Total Cell Count 103
[2023-02-09] MEDS: NOREPINEPHRINE 8 MG/250 ML-D5W 250 ML IVPB SCH (19:30)
[2023-02-09] MEDS ORDERED: NOREPINEPHRINE 8 MG/250 ML-D5W 250 ML IVPB SCH (19:30)
[2023-02-09] MEDS ORDERED: Albumin 25% 25 GM/100 ML BOT IVPB SCH (19:45)
[2023-02-09] MEDS ORDERED: Norepinephrine 16 MG in Dextrose 5% in Water 234 ML IVPB SCH (20:00)
[2023-02-09 21:36] VITALS: BP 85/46
[2023-02-10 00:43] VITALS: TEMP 98.2
[2023-02-10] MEDS ORDERED: Albumin 25% 100 ML ONE (01:39)
[2023-02-10] MEDS ORDERED: Vasopressin 20 UNITS, Admixture Fee 1 EACH in Sodium Chloride 0.9% 50 ML IV SCH (01:45)
[2023-02-10 01:52] LABS: Base Excess (BEa) -6.9 mEq/L (-2.0 to +3.0); CO2 Tension 53.6 mmHg (35.0-45.0); Calcium, Ionized (arterial) 1.16 mmol/L (1.12-1.30); Carboxyhemoglobin (COHb) 0.4 gm% (0.0-3.0); Hematocrit-ABG 31 % (36.0-47.0); Hemoglobin (Hb) 10.7 g/dL (12.0-16.0); Potassium - ABG Lab 4.72 mmol/L (3.70-5.30); pH, Arterial 7.211 (7.35-7.45)
[2023-02-10] MEDS ORDERED: Sodium Bicarb 50 MEQ/50 ML Abboject 8.4% SYRINGE ONE (02:10)
[2023-02-10] MEDS ORDERED: EPINEPHrine 1 MG/10 ML Abboject SYRINGE ONE (02:10)
[2023-02-10 02:21] LABS: Hematocrit 34.1 % (36.0-47.0); Manual Diff?? YES; Mean Corpuscular HGB CONC 29.3 g/dL (32.0-36.0); Mean Corpuscular Hemoglobin 31.3 pg (27.0-31.0); Mean Platelet Volume 12.5 fL (7.4-10.4); Platelet Count 217 10x3/uL (130-400); RBC Distribution Width 14.6 % (11.5-14.5); Red Blood Cell (RBC) Count 3.19 mill/uL (4.20-5.40)
[2023-02-10 02:23] LABS: O2 Tension (PaO2), arterial 22.7 mmHg (80.0-100.0); Puncture Site RBA
[2023-02-10 02:23] LABS: Mean Corpuscular Volume 106.9 fl (78.0-98.0); White Blood Cell (WBC) Count 9.2 10x3/uL (4.8-10.8)
[2023-02-10 02:24] LABS: Delete Auto Diff?? YES
[2023-02-10] MEDS ORDERED: EPINEPHrine 4 MG in Dextrose 5% in Water 250 ML IVP SCH (02:30)
[2023-02-10 02:47] LABS: ALT (SGPT) 9 U/L (8-55); AST (SGOT) 16 U/L (5-34); Albumin 3.6 g/dL (3.5-5.0); Alkaline Phosphatase 166 U/L (40-110); Anion Gap 18 mmol/L (10-20); BUN (Urea Nitrogen) 27 mg/dL (9.8-20.1); Bilirubin, Total 1.2 mg/dL (0.2-1.2); Calc. Creatinine Clearance 41 mL/min (70-130); Calcium 9.5 mg/dL (7.8-10.44); Carbon Dioxide 16 mmol/L (22-29); Chloride 107 mmol/L (98-107); Estimated GFR 22; Globulin 2.5 g/dL (2.4-3.5); Glucose 125 mg/dL (70-105); Protein, Total 6.1 g/dL (6.0-8.3); Sodium 136 mmol/L (136-145)
[2023-02-10 02:48] LABS: Magnesium 1.9 mg/dL (1.6-2.6)
[2023-02-10 02:51] LABS: Anisocytosis SLIGHT = 6-15 cells HPF (0-5); Band 22 % (5-11); Burr Cells MODERATE= 6-15 cells HPF (0-1); CellaVision Operator ID lab.sh2; Large Platelets 17.5 % (0-5); Lymphocytes 13 % (21-51); Macrocytosis MODERATE=16-30 cells HPF (0-5); Neutrophil 65 % (42-75); Ovalocytes SLIGHT = 2-5 cells HPF (0-1); Platelet Adequacy Comment Platelets Normal; Poikilocytosis SLIGHT = 6-15 cells HPF (0-5); Smudge Cells 3.9 %; Total Cell Count 103; Vacuoles SLIGHT
[2023-02-10] MEDS: NOREPINEPHRINE 8 MG/250 ML-D5W 250 ML IVPB SCH (02:57)
[2023-02-10] MEDS ORDERED: Sodium Bicarbonate 150 MEQ in Dextrose 5% in Water 1,000 ML IV SCH (03:00)
[2023-02-10 03:14] LABS: Troponin I 0.139 ng/mL (< 0.028)
[2023-02-10 03:24] LABS: Albumin 3.6 g/dL (3.5-5.0); Anion Gap 20 mmol/L (10-20); BUN (Urea Nitrogen) 29 mg/dL (9.8-20.1); BUN/Creatinine Ratio 11.89; Calc. Creatinine Clearance 43 mL/min (70-130); Carbon Dioxide 15 mmol/L (22-29); Chloride 106 mmol/L (98-107); Estimated GFR 23; Glucose 121 mg/dL (70-105); Phosphorus 3.6 mg/dL (2.3-4.7); Potassium 4.8 mmol/L (3.5-5.1); Sodium 136 mmol/L (136-145)
[2023-02-10] MEDS ORDERED: Sodium Bicarb 50 MEQ/50 ML Abboject 8.4% SYRINGE IVP SCH (05:45)
[2023-02-10] MEDS ORDERED: Calcium Chloride 1 GM/10 ML Abboject SYRINGE IVP SCH (05:45)
[2023-02-10] MEDS ORDERED: DOPamine 400 MG/D5W 250 ML 250 ML IVPB SCH (05:45)
[2023-02-10] MEDS ORDERED: Atropine Sulfate 1 mg/10 ml Syringe IVP SCH (05:45)
[2023-02-10] MEDS ORDERED: Albumin 25% 25 GM/100 ML BOT IVPB SCH (05:45)
[2023-02-10] MEDS ORDERED: EPINEPHrine 1 MG/10 ML Abboject SYRINGE IVP SCH (05:45)
[2023-02-10] MEDS ORDERED: FLU VACC QS2023-24(6MOS UP)/PF 60 MCG/0.5 ML SYRINGE IM ONE (09:00)
[2023-02-10] MEDS ORDERED: CEFAZOLIN 2 GM in Sodium Chloride 0.9% 100 ML IVPB SCH (12:30)
== END 2023-02-10 03:50 | disposition expired | DRG 208 ==
LOC: ERS 22:01 → 2NO 02-07 00:29 → CCU 02-09 18:33
PROVIDERS: ADMIT Student in an Organized Health Care Education/Training Program; ATTEND Internal Medicine
PROC: 30233J1 Transfusion of Nonautologous Serum Albumin into Peripheral Vein, Percutaneous Approach (ICD-10-PCS; 2023-02-08)
PROC: 06HM33Z Insertion of Infusion Device into Right Femoral Vein, Percutaneous Approach (ICD-10-PCS; 2023-02-09)
PROC: 5A1D70Z Performance of Urinary Filtration, Intermittent, Less than 6 Hours Per Day (ICD-10-PCS; 2023-02-09)
PROC: 4A133R1 Monitoring of Arterial Saturation, Peripheral, Percutaneous Approach (ICD-10-PCS; 2023-02-09)
PROC: 3E033XZ Introduction of Vasopressor into Peripheral Vein, Percutaneous Approach (ICD-10-PCS; 2023-02-09)
PROC: 5A1935Z Respiratory Ventilation, Less than 24 Consecutive Hours (ICD-10-PCS; 2023-02-09)
PROC: 0BH17EZ Insertion of Endotracheal Airway into Trachea, Via Natural or Artificial Opening (ICD-10-PCS; 2023-02-09)
PROC: 5A12012 Performance of Cardiac Output, Single, Manual (ICD-10-PCS; 2023-02-09)
PROC: 4A133B1 Monitoring of Arterial Pressure, Peripheral, Percutaneous Approach (ICD-10-PCS; principal; 2023-02-10)
PROC: 4A133J1 Monitoring of Arterial Pulse, Peripheral, Percutaneous Approach (ICD-10-PCS; 2023-02-10)
PROC: 03HY32Z Insertion of Monitoring Device into Upper Artery, Percutaneous Approach (ICD-10-PCS; 2023-02-10)
DX: J96.01 Acute respiratory failure with hypoxia (principal); I50.33 Acute on chronic diastolic (congestive) heart failure; I13.0 Hypertensive heart and chronic kidney disease with heart failure and stage 1 through stage 4 chronic kidney disease, or unspecified chronic kidney disease; N18.4 Chronic kidney disease, stage 4 (severe); E87.20 Acidosis, unspecified; Z68.42 Body mass index [BMI] 45.0-49.9, adult; N17.9 Acute kidney failure, unspecified; E11.21 Type 2 diabetes mellitus with diabetic nephropathy; E88.09 Other disorders of plasma-protein metabolism, not elsewhere classified; H54.7 Unspecified visual loss; E11.22 Type 2 diabetes mellitus with diabetic chronic kidney disease; E78.5 Hyperlipidemia, unspecified; D63.1 Anemia in chronic kidney disease; E66.01 Morbid (severe) obesity due to excess calories; F32.A Depression, unspecified; Z79.82 Long term (current) use of aspirin; Z79.4 Long term (current) use of insulin; Z79.899 Other long term (current) drug therapy; Z98.891 History of uterine scar from previous surgery; I46.9 Cardiac arrest, cause unspecified
CPT/HCPCS: 36415; 36416; 36600; 71045; 76705; 80048; 80053; 80069; 81001; 82570; 82805; 83605; 83735; 83880; 84156; 84300; 84443; 84484; 84540; 85025; 85610; 85730; 86704; 90935; 93005; 93010; 94002; 94003; 94640; 96374; 97139; G0257; J0171; J0461; J1265; J1611; J1642; J1644; J1815; J1940; J7070; J7620; P9047